=== PATIENT | female | born 1970 | race Caucasian/White ===

== ENCOUNTER 2025-02-21 10:47 | Observation (INO) | payer BC, OTHER, SELFPAY ==
[2025-02-21] VITALS (8 sets, daily range): BP systolic 120–138; BP diastolic 63–86; PULSE 67–89; RESP 15–16; TEMP 36.4–36.8; O2SAT 93–99; BMI 27.8
--- NOTE | ~2025-02-21 | XR_ITS ---
Portable chest x-ray Comparison: None Clinical History: Dizziness Findings: Lungs are clear, without focal consolidation or pleural effusion. Cardiomediastinal silho uette is unremarkable. Bones and soft tissues are unremarkable. Impression: Normal chest. Reviewed, dictated and finalized at location . Impression: Normal chest.
--- NOTE | ~2025-02-21 | MR_ITS ---
EXAMINATION: MR brain/brain stem wo/w con DATE: 02/22/2025 12:06 INDICATION: Facial droop and vertigo TECHNIQUE: Magnetic resonance imaging (MRI) of the brain and brainstem was performed without and with 20 mL Multihance intravenous contrast. Sequences included sagittal and axial T1-weighted SE, axial d iffusion-weighted FS SE, axial 3D SWAN, axial T2-weighted FLAIR, and axial T2-weighted FSE. Postcontr ast axial and coronal T1-weighted SE was obtained. Apparent diffusion coefficient (ADC) maps were cre ated. COMPARISON: None. FINDINGS: There are no areas of restricted diffusion to suggest acute infarction. Small old infarct at the righ t cerebellar hemisphere. No intracranial hemorrhage or abnormal intracranial mass lesion. There are s cattered areas of nonspecific increased T2-weighted signal intensity in the cerebral white matter, pr edominantly involving the deep and periventricular white matter. There are no intraparenchymal signal abnormalities seen on the other pulse sequences. The ventricles are symmetric and normal in size. Th ere are no abnormal extra-axial fluid collections. Flow voids are seen in the cerebral arteries on th e T2-weighted sequences consistent with their expected patency. Mild mucosal thickening the bilateral ethmoid sinuses. Visualized orbits and soft tissues are unremarkable. There are no areas of abnormal enhancement on the post contrast images. IMPRESSION: 1. Small old right cerebellar infarct. No acute intracranial process or abnormally enhancing brain le sions. 2. Mild scattered nonspecific white matter T2 hyperintensity which within normal limits for age and l ikely sequela of chronic small vessel ischemic disease. Reviewed, dictated and finalized at location A. IMPRESSION: 1. Small old right cerebellar infarct. No acute intracranial process or abnorma lly enhancing brain lesions. 2. Mild scattered nonspecific white matter T2 hyperintensity which within mary l limits for age and likely sequela of chronic small vessel ischemic disease.
--- NOTE | ~2025-02-21 | CT_ITS ---
CT ANGIOGRAM NECK AND HEAD History: Vertigo, left facial droop. Technique: Axial noncontrast imaging of the brain was performed. Serial spiral axial images through t he head and neck were then obtained during arterial phase IV injection of 100 cc of Omnipaque 350. 3- D postprocessing and MIP images were then reconstructed on the remote workstation. Dose reduction ra hnique was used on this scan by utilizing automated exposure control and iterative reconstruction ra hnique. The dose-length product (DLP) was 1661.34 mGy-cm. CTA neck findings: Bilateral vertebral arteries are patent. Bilateral common carotid, internal carot id, and external carotid arteries are patent. No stenosis or large vessel occlusion. No aneurysm seen . The proximal right internal carotid artery demonstrates 0% stenosis relative to the normal distal a rtery lumen diameter. The proximal left internal carotid artery demonstrates 0% stenosis relative to the normal distal artery lumen diameter. CTA head findings: Distal vertebral arteries, basilar artery, and posterior cerebral arteries are pat ent. Distal internal carotid arteries, middle cerebral arteries, and anterior cerebral arteries are p atent. No stenosis or large vessel occlusion seen. No aneurysm seen. Axial noncontrast imaging of the brain demonstrates no evidence for acute infarct, intracranial hemor rhage or mass lesion. No mass effect or midline shift. Norton-white differentiation intact. Ventricles and subarachnoid spaces are unremarkable. Paranasal sinuses and mastoid air cells are clear. Calvariu m intact. Impression: Unremarkable exam. Reviewed, dictated and finalized at [facility]. Impression: Unremarkable exam.
--- OUTSIDE RECORDS SUMMARY | 2025-02-21 10:50 | XMS_ITS | Data Portability ---
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 Lab lipid panel, serum 2023 [facility]24 [facility], [address] [place] [address], [address], [place], [address], 08:31:30 CMP, serum or plasma 2023 024 [facility], [address] [place] [address], [address], [place], [address], 08:31:32 CBC w/ auto diff 2023 024 [facility], [address] [place] [address], [address], [place], [address], 08:31:34 unlisted lab - T4, free 2023 024 [facility], [address], [address], [place], [address], 08:31:31 T3, free, serum or plasma 2023 [facility], [address], [address], [place], [address], 08:31:34 TSH, ultra-sensi tive, serum 2023 [facility], [address], [address], [place], [address], 08:31:33 Referral None recorded. Procedures None recorded. Surgeries None recorded. Imaging None recorded. Medication Orders fluoxetine 20 mg capsule [address] [address] [facility], [address] [place] [address], [address], 17:05:32 Patient TargetsNo targets recorded. Patient InstructionsNo instructions recorded. Reason for Referral None Reported. Results Created Date Observation Date Name Description Value Unit Range Abnormal Flag Note LastModifiedBy Organization Detail LastModifiedTime 05/20/2005/21/2024 LIPID PANEL cholesterol, total 137 mg/dL 100-19 9 Not Available [facility] ([facility]) [address] [place], [address], 05/21/2024 08:31:30 05/20/2005/21/2024 LIPID PANEL triglyceride s 119 mg/dL 0-149 Not Available [facility] ([facility]) [address] [place], [address], 05/21/2024 08:31:30 05/20/20 24 05/21/2024 LIPID PANEL HDL cholesterol 64 mg/dL >39 Not Available [facility] ([facility]) [address] [place], [address], 05/21/2024 08:31:30 05/20/20 24 05/21/2024 LIPID PANEL VLDL cholesterol marissa 21 mg/dL 5-40 Not Available [facility] ([facility]) [address] [facility], [place], [address], 05/21/2024 08:31:30 05/20/20 24 05/21/2024 LIPID PANEL LDL chol calc ([facility]) 52 mg/dL 0-99 Not Available [facility] ([facility]) [address] [facility] [place], [address], 05/21/2024 08:31:30 05/20/20 24 05/21/2024 T4, FREE T4,free([facility] ct) 1.11 NG/dL 0.82-1 .77 Not Available [facility] ([facility]) [address] [place], [address], 05/21/2024 08:31:31 05/20/20 24 05/21/2024 COMP. METAB OLIC PANEL (14) glucose 102 mg/dL 70-99 above high normal Not Available [facility] ([facility]) [address] [facility] [place], [address], 05/21/2024 08:31:32 05/20/20 24 05/21/2024 COMP. METAB OLIC PANEL (14) BUN 18 mg/dL 6-24 Not Available [facility] ([facility]) [address] [place], [address], 05/21/2024 08:31:32 05/20/20 24 05/21/2024 COMP. METAB OLIC PANEL (14) creatinine 0.89 mg/dL 0.57-1 .00 Not Available [facility] ([facility]) [address] [facility] [place], [address], 05/21/2024 08:31:32 05/20/20 24 05/21/2024 COMP. METAB OLIC PANEL (14) eGFR 76 mL/mi n/1.7 3 >59 Not Available [facility] ([facility]) [address] [facility], [place], [address], 05/21/2024 08:31:32 05/20/20 24 05/21/2024 COMP. METAB OLIC PANEL (14) BUN/creatini ne ratio 20 9-23 Not Available [facility] ([facility]) [address] [facility], [place], [address], 05/21/2024 08:31:32 05/20/20 24 05/21/2024 COMP. METAB OLIC PANEL (14) sodium 142 mmol/ L 134-14 4 Not Available [facility] ([facility]) [address] [facility], [place], [address], 05/21/2024 08:31:32 05/20/20 24 05/21/2024 COMP. METAB OLIC PANEL (14) potassium 4.5 mmol/ L 3.5-5. 2 Not Available [facility] ([facility]) [address] [facility], [place], [address], 05/21/2024 08:31:32 05/20/20 24 05/21/2024 COMP. METAB OLIC PANEL (14) chloride 105 mmol/ L 96-106 Not Available [facility] ([facility]) [address] [facility], [place], [address], 05/21/2024 08:31:32 05/20/20 24 05/21/2024 COMP. METAB OLIC PANEL (14) carbon dioxide, total 25 mmol/ L 20-29 Not Available [facility] ([facility]) [address] [place], [address], 05/21/2024 08:31:32 05/20/20 24 05/21/2024 COMP. METAB OLIC PANEL (14) calcium 9.4 mg/dL 8.7-10 .2 Not Available [facility] ([facility]) [address] [facility] [place], [address], 05/21/2024 08:31:32 05/20/20 24 05/21/2024 COMP. METAB OLIC PANEL (14) protein, total 6.9 g/dL 6.0-8. 5 Not Available [facility] ([facility]) [address] [place], [address], 05/21/2024 08:31:32 05/20/20 24 05/21/2024 COMP. METAB OLIC PANEL (14) albumin 4.3 g/dL 3.8-4. 9 Not Available [facility] ([facility]) [address] [place], [address], 05/21/2024 08:31:32 05/20/20 24 05/21/2024 COMP. METAB OLIC PANEL (14) globulin, total 2.6 g/dL 1.5-4. 5 Not Available [facility] ([facility]) [address] [place], [address], 05/21/2024 08:31:32 05/20/20 24 05/21/2024 COMP. METAB OLIC PANEL (14) bilirubin, total 0.7 mg/dL 0.0-1. 2 Not Available [facility] ([facility]) [address] [facility] [place], [address], 05/21/2024 08:31:32 05/20/20 24 05/21/2024 COMP. METAB OLIC PANEL (14) alkaline phosphatase 69 IU/L 44-121 Not Available [facility] ([facility]) [address] [facility] [place], [address], 05/21/2024 08:31:32 05/20/20 24 05/21/2024 COMP. METAB OLIC PANEL (14) AST (SGOT) 18 IU/L 0-40 Not Available [facility] ([facility]) [address] [facility] [place], [address], 05/21/2024 08:31:32 05/20/20 24 05/21/2024 COMP. METAB OLIC PANEL (14) ALT (SGPT) 16 IU/L 0-32 Not Available [facility] ([facility]) [address] [facility], [place], [address], 05/21/2024 08:31:32 05/20/20 24 05/21/2024 TSH TSH 1.120 uIU/m L 0.450- 4.500 Not Available [facility] ([facility]) [address] [facility], [place], [address], 05/21/2024 08:31:33 05/20/20 24 05/21/2024 CBC WITH DIFFE RENTI AL/PL ATELE T WBC 6.3 x10e3 /uL 3.4-10 .8 Not Available [facility] ([facility]) [address] [facility], [place], [address], 05/21/2024 08:31:33 05/20/20 24 05/21/2024 CBC WITH DIFFE RENTI AL/PL ATELE T RBC 4.47 x10e6 /uL 3.77-5 .28 Not Available [facility] ([facility]) [address] [facility], [place], [address], 05/21/2024 08:31:33 05/20/20 24 05/21/2024 CBC WITH DIFFE RENTI AL/PL ATELE T hemoglobin 14.3 g/dL 11.1-1 5.9 Not Available [facility] ([facility]) [address] [place], [address], 05/21/2024 08:31:33 05/20/20 24 05/21/2024 CBC WITH DIFFE RENTI AL/PL ATELE T hematocrit 42.7 % 34.0-4 6.6 Not Available [facility] ([facility]) [address] [place], [address], 05/21/2024 08:31:33 05/20/20 24 05/21/2024 CBC WITH DIFFE RENTI AL/PL ATELE T MCV 96 fL 79-97 Not Available [facility] ([facility]) [address] [facility], [place], [address], 05/21/2024 08:31:33 05/20/20 24 05/21/2024 CBC WITH DIFFE RENTI AL/PL ATELE T MCH 32.0 pg 26.6-3 3.0 Not Available [facility] ([facility]) [address] [facility], [place], [address], 05/21/2024 08:31:33 05/20/20 24 05/21/2024 CBC WITH DIFFE RENTI AL/PL ATELE T MCHC 33.5 g/dL 31.5-3 5.7 Not Available [facility] ([facility]) [address] [facility], [place], [address], 05/21/2024 08:31:33 05/20/20 24 05/21/2024 CBC WITH DIFFE RENTI AL/PL ATELE T RDW 12.5 % 11.7-1 5.4 Not Available [facility] ([facility]) [address] [facility], [place], [address], 05/21/2024 08:31:33 05/20/20 24 05/21/2024 CBC WITH DIFFE RENTI AL/PL ATELE T platelets 235 x10e3 /uL 150-45 0 Not Available [facility] ([facility]) [address] [facility], [place], [address], 05/21/2024 08:31:33 05/20/20 24 05/21/2024 CBC WITH DIFFE RENTI AL/PL ATELE T neutrophils 63 % notest ab. Not Available [facility] ([facility]) [address] [facility], [place], [address], 05/21/2024 08:31:33 05/20/20 24 05/21/2024 CBC WITH DIFFE RENTI AL/PL ATELE T lymphs 28 % notest ab. Not Available [facility] ([facility]) [address] [facility], [place], [address], 05/21/2024 08:31:33 05/20/20 24 05/21/2024 CBC WITH DIFFE RENTI AL/PL ATELE T monocytes 7 % notest ab. Not Available [facility] ([facility]) [address] [facility], [place], [address], 05/21/2024 08:31:33 05/20/20 24 05/21/2024 CBC WITH DIFFE RENTI AL/PL ATELE T eos 1 % notest ab. Not Available [facility] ([facility]) [address] [facility], [place], [address], 05/21/2024 08:31:33 05/20/20 24 05/21/2024 CBC WITH DIFFE RENTI AL/PL ATELE T basos 1 % notest ab. Not Available [facility] ([facility]) [address] [facility], [place], [address], 05/21/2024 08:31:33 05/20/20 24 05/21/2024 CBC WITH DIFFE RENTI AL/PL ATELE T neutrophils (absolute) 4.0 x10e3 /uL 1.4-7. 0 Not Available [facility] ([facility]) [address] [facility], [place], [address], 05/21/2024 08:31:33 05/20/20 24 05/21/2024 CBC WITH DIFFE RENTI AL/PL ATELE T lymphs (absolute) 1.8 x10e3 /uL 0.7-3. 1 Not Available [facility] ([facility]) [address] [facility], [place], [address], 05/21/2024 08:31:33 05/20/20 24 05/21/2024 CBC WITH DIFFE RENTI AL/PL ATELE T monocytes(ab solute) 0.5 x10e3 /uL 0.1-0. 9 Not Available [facility] ([facility]) [address] [place], [address], 05/21/2024 08:31:33 05/20/20 24 05/21/2024 CBC WITH DIFFE RENTI AL/PL ATELE T eos (absolute) 0.0 x10e3 /uL 0.0-0. 4 Not Available [facility] ([facility]) [address] [facility], [place], [address], 05/21/2024 08:31:33 05/20/20 24 05/21/2024 CBC WITH DIFFE RENTI AL/PL ATELE T baso (absolute) 0.0 x10e3 /uL 0.0-0. 2 Not Available [facility] ([facility]) [address] [place], [address], 05/21/2024 08:31:33 05/20/20 24 05/21/2024 CBC WITH DIFFE RENTI AL/PL ATELE T immature granulocytes 0 % notest ab. Not Available [facility] ([facility]) [address] [place], [address], 05/21/2024 08:31:33 05/20/20 24 05/21/2024 CBC WITH DIFFE RENTI AL/PL ATELE T immature grans (abs) 0.0 x10e3 /uL 0.0-0. 1 Not Available [facility] ([facility]) [address] [place], [address], 05/21/2024 08:31:33 05/20/20 24 05/21/2024 TRIIO DOTHY MEIR E (T3), FREE triiodothyro nine (T3), free 3.0 pg/mL 2.0-4. 4 Not Available [facility] ([facility]) [address] [place], [address], 05/21/2024 08:31:34 05/20/20 24 05/21/2024 FSH AND LH LH 25.8 mIU/m L Adult Femal e Range Folli cular phase 2.4 - 12.6 Ovula tion phase 14.0 - 95.6 Lutea l phase 1.0 - 11.4 Postm enopa usal 7.7 - 58.5 Not Available [facility] ([facility]) [address] [place], [address], 05/21/2024 12:36:58 05/20/20 24 05/21/2024 FSH AND LH FSH 51.5 mIU/m L Adult Femal e Range Folli cular phase 3.5 - 12.5 Ovula tion phase 4.7 - 21.5 Lutea l phase 1.7 - 7.7 Postm enopa usal 25.8 - 134.8 Not Available [facility] ([facility]) [address] [facility], [place], [address], 05/21/2024 12:36:58 11/20/19 25 11/19/2024 MAMMO , scree oniel, digit al, bilat eral No observ ation record ed. [facility] [address] [place], [address], 11/20/2024 15:58:35 Result Notes None recorded. Problems Name Problem SNOMED Code Status Onset Date Resolution Date Notes Provider Name and Address Organization Details Recorded Time Anxiety 55621003 Active 024 Adilene Lopez [place] null, [place] - [facility] 04/08/2024 15:57:59 Fatigue 86043251 Active 024 Adilene Lopez [place] null, [place] - [facility] 04/08/2024 15:58:14 Problem Notes None recorded. Procedures Surgical History Date Name Laterality Status Provider Name and Address Organization Details Recorded Time delivery completed Frederic Vela MA [facility] 04/08/2024 15:28:54 delivery completed Frederic Vela MA [facility] 04/08/2024 15:28:55 Imaging Results None recorded. Procedure Notes None recorded. Medical Equipment None Reported. Allergies No known drug allergies Medications Name Sig Start Date Stop Date Status Note LastModified by Organization Details LastModified Time meloxicam 15 mg tablet TAKE 1 TABLET BY MOUTH ONCE DAILY active Not Available Not Available No t Available alprazolam 0.5 mg tablet TAKE 1 TABLET BY MOUTH ONCE DAILY NEEDED active Not Available Not Available No t Available fluoxetine 20 mg capsule Take 1 capsule every day by oral route. 024 active Not Available Not Available Not Avai lable Vitals Date Recorded Body weight Body mass index (BMI) Body height Oxygen saturation Oxygen saturation in Arterial blood by Pulse oximetry Heart rate Systolic blood pressure Diastolic blood pressure Provider Name and Address Organization Details Last Updated DateTime 23366.6 7 g 29.5 kg/m2 177.8 cm 95 % 95 % 75 /min 118 mm[Hg] 74 mm[Hg] Frederic Vela MA [facility] 15:34:30 Social History Question Answer Notes LastModified by Organizat ion Details LastModified Time Tobacco Smoking Status Never Smoker Fredeirc Vela [place] null, [place] - [facility] 04/08/2024 15:27:58 Do You Have An Advance Directive? No Information not available 04/08/2024 Are You Blind Or Do You Have Difficulty Seeing? No Information not available 04/08/2024 What Is Your Level Of Caffeine Consumption? Occasional Information not available 04/08/2024 Are You Deaf Or Do You Have Serious Difficulty Hearing? No Information not available 04/08/2024 What Type Of Diet Are You Following? REGULAR Information not available 04/08/2024 What Was The Date Of Your Most Recent Tobacco Screening? 04/08/2024 Information not available 04/08/2024 What Is Your Relationship Status? Information not available 04/08/2024 Do You Use Your Seat Belt Or Car Seat Routinely? Yes Information not available 04/08/2024 Do You Have Smoke And Carbon Monoxide Detectors In Your Home? Yes Information not available 04/08/2024 Has Tobacco Cessation Counseling Been Provided? No Information not available 04/08/2024 Sex: Female Functional Status Question Answer Note LastModified by Organizat ion Details LastModified Time Do you use any illicit or recreational drugs? No Information not available 04/08/2024 Do you or have you ever used any other forms of tobacco or nicotine? No Information not available 04/08/2024 What is your level of alcohol consumption? Occasional Information not available 04/08/2024 Are you able to care for yourself? Yes Information n ot available 04/08/2024 What is your exercise level? Occasional Information not available 04/08/2024 Mental Status Question Answer Note LastModified by Organization D etails LastModified Time Do you feel stressed (tense, restless, nervous, or anxious, or unable to sleep at night)? [id number] Information not available 04/08/2024 Family History Nothing Reported. Medical History Condition Response Coronary Artery Disease N Other N High Blood Pressure N Atrial Fibrillation N Kidney or Bladder Problems N Thyroid Problems N GI Problems N Depression Y COPD N Blood Clots N Have you had a mammogram in the last yea r? N Skin Problems N Anemia N Heart Attack ([place]) N Anxiety Disorder Y Diabetes N Muscle, Joint, or Bone Problems N Seizures/Epilepsy N Have you had a colonoscopy in the last 1 0 years? N Acid Reflux (GERD) N Cancer N Stroke N Asthma N Allergies N Have you had a PSA blood test in the las t year? N High Cholesterol N Hepatitis N Liver Disease N Headaches N Heart Failure N Osteoporosis N Gynecological HistoryNo gynecological history recorded. Obstetrics History GPAL:G 0 P 0 0 0 0 Past Encounters Encounter ID Performer Location Encounter Start Date Encounter Closed Date Diagnosis/Indication Diagnosis SNOMED-CT Code Diagnosis ICD10 Code Diagnosis Note [id number] Joshua Perrin MD [facility] (Adult Med) [address] [place] [phone] 04/08/2024 15:10:09 04/08/2024 16:08:46 Fatigue 26920355 R53.83 Anxiety 18131555 F41.9 Screening for cardiovascular system disease 815925797 Z13.6 Perimenopausal state 022 8932237 26155 Z78.0 Health Concerns Section Related Observation LastModified by Organization Detai ls LastModified Time None Recorded Concern Status LastModified by Organization Details LastModified Time None Recorded Advance Directives Directive N: Payers Encounter Date Sequence Insurance Name Policy Number Policy Gtz Covered Member ID Gtz Member ID Guarantor Name 04/08/2024 2 [employer] [id number] Samy Sarmiento Rossana [id number] Yahaira Tracy 04/08/2024 3 [employer] LIFE () Samy Tracy [id number] Yahaira Tracy Notes Date Note Type Note Provider Name and Address Organization Details Recorded Time 04/08/2024 text/html some fatigue and perimenopausal symptoms. Also some anxiety no SI or HI Joshua Perrin MD Attn: [address]ing[address] [place], [address], [facility] 05/02/2024 13:51:14 OBGyn Episode No OBEpisode recorded.
--- OUTSIDE RECORDS SUMMARY | 2025-02-21 10:50 | XMS_ITS | Data Portability ---
Author Organization [place] [facility], Main Office Address [address] [place] [address] Care Team Providers Care Disaster Director Name Role Phone FARA PERRIN Primary Care Provider [phone] FARA PERRIN Referring Provider Assessment Encounter Date Assessment Date Assessment LastModified by Organization Details LastModified Time 03/14/2023 03/14/2023 Patient returns after MRI scan of her right knee. I have reviewed the images. 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 There is degenerative signal within the medial meniscus as well as anterior horn of lateral meniscus without evidence of tear. She does have edema in the tip of the infrapatellar fat pad might be contributing to her inability to fully extend her knee and there is a little bit of swelling of the insertion of the ACL anteriorly seen well on the sagittal images but not seen well on the coronal images which might impede Extension. Moderate effusion noted. The most significant finding was full-thickness cartilage loss in the center of the patella with subchondral bone edema centrally proximally indicating she has early patellofemoral arthritis. She ran out of her meloxicam at last visit 2 weeks ago and her knee has been hurting more in her left knee has been hurting also. She is using a cane in the right hand because of her abductor weakness left hip which is believed to be due to degenerative tearing of the abductor musculature there. I have discussed options with her. I recommended trying a cortisone injection into the right knee. She has had physical therapy and took meloxicam for 2 months and her symptoms have persisted. Hopefully the cortisone shot will cause some shrinkage and D sensitization of the infrapatellar fat pad lessening impingement and allowing her to extend the knee better. On exam today she had a moderate effusion left knee and about a 15 degree flexion contracture which I could passively push down to about 10 and she guards. After ChloraPrep prep, 20 mg of Kenalog and 4 cc of 0.5% ropivacaine were injected into the right knee without difficulty and she tolerated this very well. After the cortisone shot as a beneficial effect she will work on trying to achieve full extension again with gentle stretching every day. I refilled her meloxicam 15 mg daily. She will continue use the cane in the right hand I will see her back in 6 weeks assess her progress. I did discuss with her risks of cortisone shot including risk of infection. I also discussed with her the importance of her focusing hard on losing weight. Weight loss will be the most important thing she can do to help with her abductor weakness and trochanteric pain syndrome as well as patellofemoral arthritis and this was thoroughly explained. 20 minutes were spent total care this patient more than half the time spent in [id number] care. [email or web address] Not available 03/14/2023 09:28:39 04/25/2023 04/25/2023 HPI patient returns. She had a cortisone injection in the right knee 6 weeks ago. Shot worked great, at this point she feels that the effects of the shot her wearing off. She has been very active because her knee was feeling so good. She has been doing a lot of stool squatting and kneeling around the house. She has not been taking the meloxicam regularly. She forgets it at times and is not sure how often she actually is taking it. Pain in the knee is mild at this point it is much better than what was previously. Physical exam: 53-year-old female she is walking with a cane today. She has a minimal limp. No effusion the right knee. Range motion is from 5-135 degrees. She has pain trying to extend the knee fully still. There is no medial or lateral joint line tenderness. Mild patellofemoral grind. Impression: 53-year-old female who has patellofemoral osteoarthritis seen on MRI scan. She has no meniscal pathology on the MRI scan. She asked about another injection and advised her knees be a minimum of 3 months. I have also recommended that she start taking the meloxicam on a daily basis rather than missing doses as this can help with her symptoms as well. We talked about weight loss again as this will also help with her symptoms as well. Overall her symptoms at this point are very tolerable. She would like to come back in 6 weeks for possible injection again and we will set this up for her. If she continues taking meloxicam regularly and has significant improvement of her symptoms with this as well as modifying activities she can certainly call and cancel rather than get the shot if she does not feel she needs it. 20 minutes was spent in treatment patient more half of this in [id number] conversation Not available 04/25/2023 11:55:43 06/06/2023 06/06/2023 HPI: Patient returns. She is here wanting a cortisone injection in her right knee again. Last shot was 3 months ago. She has had an MRI scan which shows that she has predominantly patellofemoral osteoarthritis and no meniscal pathology. She has been taking the meloxicam daily and this has helped with her symptoms. However several days ago she was helping her daughter who is ready to have her 1st baby. She was doing a lot of extra cleaning and help around her daughter's house and was on her feet extended period of time for couple days in a row and now the knee is bothering her again. She is getting ready to go on a trip to [place] and wished to have another injection today. Physical exam: 53-year-old female alert pleasant. She walks without limp. Has a minimal effusion right knee. Moderate patellofemoral grind. Range motion is from 3 to 135 . No medial or lateral joint line tenderness. ChloraPrep was used on skin 20 mg Kenalog and 3 cc of 0.5% ropivacaine was injected right knee. Risk infection discussed. Impression: A 53-year-old female who has patellofemoral osteoarthritis best seen on the MRI scan in the right knee. I recommended that she continue with her meloxicam daily. Shots could be repeated as often as every 3 months and she will keep that in mind. At this point see her back as needed. Not available 06/06/2023 12:15:48 09/05/2023 09/05/2023 HPI: Patient returns. She is here for cortisone injection right knee. She has patellofemoral osteoarthritis in the knee best seen on the MRI scan. Shot 3 months ago did help quite a bit. She remains on meloxicam 15 mg daily. Physical exam: 53-year-old female she is 5 ft 9 and 228 lb BMI is 33.7. She has a minimal effusion in the right knee. Moderate pain with patellofemoral grind. No medial lateral joint line tenderness. Range of motion is from 5-135 degrees. After ChloraPrep was used on skin 20 mg Kenalog and 3 cc of 0.5% ropivacaine was injected into the right knee. Risk of infection discussed. Impression: 53-year-old female who has patellofemoral osteoarthritis the right knee. We talked about weight loss. I think with getting her weight down can make a big difference on overall pain level in the knee. She states that she is going to start working on this as of the of the year as her goal. She will remain on meloxicam at this point. We will see her in 3 months. Not available 09/05/2023 16:38:02 12/05/2023 12/05/2023 HPI: Patient returns. She is here for cortisone injection in the right knee. Last shot was 3 months ago. She gets good relief from the injections. She has moderate patellofemoral osteoarthritis in the knee. 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 She has been going up and down stairs lot more than normal. Her knee is bothering her quite a bit. She is on meloxicam and this is helping with her pain. She would like to have another injection today. Physical exam: 53-year-old female he walks without a limp. Mild effusion right knee. Moderate pain with patellofemoral grind. Range motion is from 10 to 135 . No edema in lower extremities. After alcohol prep 20 mg Kenalog and 3 cc of 0.5% ropivacaine was injected into the right knee. Impression: 53-year-old female who has patellofemoral osteoarthritis the right knee. Shots continue new to give her good benefit. We will see her in 3 months. Not available 12/05/2023 09:14:15 Plan of Treatment Reminders Order Date Submit Date Provider Last Modified By Organization Details Last Modified Time Details Appointments None recorded. Lab None recorded. Referral None recorded. Procedures injection/a spiration joint/bursa (PROC) 2023 024 [email or web address] In-Office Order, Internal Use Only DO Not Attach Compendium DO Not Attach Compendium, Do Not Delete/merge, [id number] 13:34:01 injection/a spiration joint/bursa (PROC) - in office procedure, administere d by provider 2022 023 [email or web address] In-Office Order, Internal Use Only DO Not Attach Compendium DO Not Attach Compendium, Do Not Delete/merge, [id number] 16:11:22 injection/a spiration joint/bursa (PROC) - in office procedure, administere d by provider 2022 023 In-Office Order, Internal Use Only DO Not Attach Compendium DO Not Attach Compendium, Do Not Delete/merge, [id number] 3 12:00:43 injection/a spiration joint/bursa (PROC) - in office procedure, administere d by provider 2022 023 [email or web address] In-Office Order, Internal Use Only DO Not Attach Compendium DO Not Attach Compendium, Do Not Delete/merge, [id number] 3 09:22:49 Surgeries None recorded. Imaging None recorded. Medication Orders bupivacaine HCl 0.5 % (5 mg/mL) injection solution [address] [facility], [address] [place] [address], [id number], 4 09:15:04 Kenalog 10 mg/mL suspension for injection [address] [facility], [address] [place] [address], [id number], 4 09:15:04 Mobic 15 mg tablet 2023 024 [facility], [address] [place] [address], [id number], 4 09:15:00 Kenalog 10 mg/mL suspension for injection [address] [facility], [address] [place] [address], [id number], 3 13:06:37 ropivacaine (PF) 5 mg/mL (0.5 %) injection solution [address] [facility], [address] [place] [address], [address], 3 13:06:37 Kenalog 10 mg/mL suspension for injection [address] [facility], [address] [place] [address], [address], 3 12:59:04 ropivacaine (PF) 5 mg/mL (0.5 %) injection solution [address] [facility], [address] [place] [address], [address], 3 12:59:04 Kenalog 10 mg/mL suspension for injection 2022 023 [facility] [place] [address] [facility], [address] [place] [address], [address], 3 06:27:28 ropivacaine (PF) 5 mg/mL (0.5 %) injection solution 2022 023 [facility] [place] [address] Pharmacy [address], [address] [place] [address], [address], 3 06:27:28 meloxicam 15 mg tablet [address] [facility], [address] [place] [address], [id number], 3 12:20:02 Patient TargetsNo targets recorded. Patient InstructionsNo instructions recorded. Reason for Referral None Reported. Results Created Date Observation Date Name Description Value Unit Range Abnormal Flag Note LastModifiedBy Organization Detail LastModifiedTime 02/29/20 23 XR, hip + pelvi s, unila teral No observ ation record ed. [email or web address] [facility] [place] [id number] [facility], [place], [address], 03/06/2023 21:12:11 03/12/20 23 03/12/2023 MRI, knee, w/o contr ast [facility] [address], [place] [address] [phone] Patien t Name: ROBERT HERNANDEZ Access ion #: [id number] Sex: F : 1969 0 Locati on: RAD Attend ing Physic amadou: FREDDY JACOB Orderi ng Physic amadou: FREDDY JACOB Exam Date: 023 10:39 AM Exam Name: MRI KNEE RT WO Admitt ing Diagno sis(es ): RADIOL OGY REPORT - FINAL EXAM: MRI KNEE RT WO HISTOR Y: right knee pain COMPAR JOI: Chroni c TECHNI QUE: Multip lanar multis equenc e noncon trast MR images of the right knee were perfor med. FINDIN GS: Osseou s: No. Mild focus of subcho ndral edema, superi or apical region of the patell a measur ing 1 cm. No defini te fractu re. Joint space: There is a small joint effusi on. No poplit eal fossa cyst. Gabriella meza g Page 1 of 2 [facility] Patien t Name: ROBERT HERNANDEZ Access ion #: [id number] Sex: F : 1969 0 Exam Date: 023 10:39 AM Exam Name: MRI KNEE RT WO Admitt ing Diagno sis(es ): Ligame nts: The ACL, PCL, MCL, LCL, akhil ceps tendon , and the retina cular tissue s are intact . Tendon s:Inta ct Cartil age:Mo derate thinni ng, all 3 compar tments . Tablet Coater olater al corner :Unrem arkabl e Medial menisc us: The medial menisc us demons trates degene rative noncom munica ting hyperi ntense signal . Latera l menisc us: The latera l menisc us is intact demons tratin g intras ubstan ce hyperi ntense signal . IMPRES PADMINI: See above. Create d and electr onical ly signed by: Virgil moore MD Signed Date: 4:53 PM (CT) Dictat ed by: Virgil moore MD DD: 4:53 PM (CT) DT: 4:53 PM (CT) Page 2 of [id number] [place] [address] (Imaging) [address] [place] [address], [address], 03/13/2023 16:43:10 Result Notes None recorded. Problems Name Problem SNOMED Code Status Onset Date Resolution Date Notes Provider Name and Address Organization Details Recorded Time Bilateral elbow joint pain 98494708251 940548 Active 2021 Not Available [facility] 3 06:27:29 Pain of left elbow joint 93481376515 092948 Active 2021 Not Available [facility] 3 06:27:29 Pain of right elbow joint 69292048046 637672 Active 2021 Not Available [facility] 3 06:27:29 Neuralgia 85895672 Active 2018 Not Available [facility] 3 06:27:29 Cat scratch Completed Not Available [facility] 3 06:15:15 Wears glasses 891912831 Active 2018 Not Available [facility] 3 06:27:29 Ankle pain 188299097 Active 2018 Not Available [facility] 3 06:27:29 Pain in thoracic spine 481431402 Completed Not Available [facility] 3 06:15:15 Thoracic back pain 548754640 Active Not Available [facility] 3 06:27:29 Low back pain 733819325 Active 2021 Not Available [facility] 3 06:27:29 Medial epicondyl itis of left elbow joint 06929562011 9107 Active 2021 Not Available [facility] 3 06:27:29 Depressiv e disorder 70697399 Active 2018 Not Available [facility] 3 06:27:29 Sinusitis 99128546 Completed Not Available [facility] 3 06:15:16 Foot pain 82365876 Active 2018 Not Available [facility] 3 06:27:29 Pain of elbow region 88948457 Active 2021 Not Available [facility] 3 06:27:29 Neck pain 06693595 Active Not Available [facility] 3 06:27:29 Pain of bilateral knee joints 61973838833 4104 Active 2022 Not Available [facility] 3 06:27:29 Bilateral osteoarth ritis of knees 32106711809 9107 Active 2022 Not Available [facility] 3 06:27:29 Pain of right knee joint 35563872415 4100 Active 2022 Not Available [facility] 3 06:27:29 Pain of right hip joint 00088051961 9102 Active 2022 Not Available [facility] 3 06:27:29 Degenerat alen disorder of cartilage 059867832 Active 2022 NGOZI Garcia, [facility] [employer] [facility] 3 10:57:32 Osteoarth ritis of left knee joint 50336304253 9109 Active 2022 Vanessa Jameson CMA null, [employer] [facility] [employer] [facility] 3 14:30:51 Osteoarth ritis of right knee joint 60396166771 9100 Active 2022 NGOZI Garcia null, [place] [facility] 16:10:02 Notes:numbness or tingling, back/neck pain Problem Notes None recorded. Procedures Surgical History Date Name Laterality Status Provider Name and Address Organization Details Recorded Time plantar fasciectomy completed Not Available [facility] 11/14/2022 06:12:03 completed Not Available [facility] 0 11/14/2022 06:12:03 completed Not Available [facility] 0 11/14/2022 06:12:03 Imaging Results None recorded. Procedure Notes None recorded. Medical Equipment None Reported. Allergies No known drug allergies Medications Name Sig Start Date Stop Date Status Note LastModified by Organization Details LastModified Time cyclobenzap rine 10 mg tablet Take 1 tablet every day by oral route at bedtime. active Not Available Not Available No t Available amoxicillin 500 mg capsule TAKE 1 CAPSULE BY MOUTH THREE TIMES DAILY FOR 7 DAYS active Not Available Not Available No t Available buspirone 5 mg tablet Take 1 tablet twice a day by oral route. active Not Available Not Available No t Available ibuprofen 800 mg tablet Take 1 tablet 3 times a day by oral route. 12/20 completed Not Available Not Available Not Available tizanidine 4 mg tablet Take 1 tablet every day by oral route at bedtime. active Not Available Not Available No t Available valacyclovi r 1 gram tablet Take 1 tablet twice a day by oral route for 7 days. 12/03 completed Not Available Not Available Not Available meloxicam 15 mg tablet Take 1 tablet by mouth once daily active Not Available Not Available No t Available Medrol ([place]) 4 mg tablets in a dose pack Take 1 dose pk by oral route as directed. active Not Available Not Available No t Available bupivacaine HCl 0.5 % (5 mg/mL) injection solution in office 2023 active Not Available Not Available Not Avai lable prednisone 20 mg tablet 3tabs x 3 days, 2tabs x 3days, 1 tab x 3 days active Not Available Not Available No t Available sertraline 100 mg tablet TAKE 1 TABLET BY MOUTH ONCE DAILY 12/20 completed Not Available Not Available Not Available phentermine 15 mg capsule active Not Available Not Available Not Available Diflucan 150 mg tablet Take 1 tablet every day by oral route. active Not Available Not Available No t Available amoxicillin 500 mg tablet Take 1 tablet 3 times a day by oral route for 7 days. 09/26 completed Not Available Not Available Not Available terbinafine HCl 250 mg tablet Take 1 tablet every day by oral route. 09/18 completed Not Available Not Available Not Available alprazolam 0.5 mg tablet TAKE 1 TABLET BY MOUTH ONCE DAILY NEEDED active Not Available Not Available No t Available citalopram 20 mg tablet TAKE 1 TABLET BY MOUTH ONCE DAILY 04/25 completed Not Available Not Available Not Available lorazepam 0.5 mg tablet TAKE ONE TABLET BY MOUTH AT BEDTIME NEEDED active Not Available Not Available No t Available Kenalog 10 mg/mL suspension for injection in office 2023 active [facility]: 0003- 0494- 20 Not Available Not Available Not Available etodolac 400 mg tablet Take 1 tablet twice a day by oral route. active Not Available Not Available No t Available sertraline 50 mg tablet TAKE 1 TABLET BY MOUTH ONCE DAILY 12/20 completed Not Available Not Available Not Available amoxicillin 875 mg-potassiu m clavulanate 125 mg tablet Take 1 tablet twice a day by oral route for 10 days. 12/03 completed Not Available Not Available Not Available Sprintec (28) 0.25 mg-0.035 mg tablet TAKE 1 TABLET BY MOUTH ONCE DAILY IN A CONTINUOU S FASHION 09/18 completed Not Available Not Available Not Available Tri-Sprinte c (28) 0.18 mg(7)/0.215 mg(7)/0.25 mg(7)-0.035 mg tablet 11/28 completed Not Available Not Available Not Available Zanaflex 4 mg capsule Take 1 capsule every day by oral route at bedtime. 12/01 completed Not Available Not Available Not Available Sprintec (28) 11/25 completed Not Available Not Available Not Available ropivacaine (PF) 5 mg/mL (0.5 %) injection solution in office 2022 active Not Available Not Available Not Avai lable Vitals Date Recorded Body height Provider Name an d Address Organization Details Last Updated DateTime 12/05/2023 175.26 cm NGOZI Garcia [place] [facility] [employer] [facility] 12/05/2023 09:01:19 Date Recorded Body height Provider Name an d Address Organization Details Last Updated DateTime 03/14/2023 175.26 cm Dsaha Frank [facility] 03/14/2023 09:02:57 Date Recorded Body height Provider Name an d Address Organization Details Last Updated DateTime 04/25/2023 175.26 cm Dasha Frank [facility] 04/25/2023 10:56:32 Date Recorded Body height Provider Name an d Address Organization Details Last Updated DateTime 06/06/2023 175.26 cm Dasha Frank [facility] 06/06/2023 10:59:23 Date Recorded Body height Provider Name an d Address Organization Details Last Updated DateTime 09/05/2023 175.26 cm Dasha Frank [facility] 09/05/2023 16:09:29 Social History Question Answer Notes LastModified by Organizat ion Details LastModified Time Tobacco Smoking Status Never Smoker Not Available [facility] 11/14/2022 06:11:44 Do You Have An Advance Directive? No [id number] Information not available 11/14/2022 Do You Wear A Helmet When Biking? No [id number].15760 [id number] Information not available 11/14/2022 What Is Your Level Of Caffeine Consumption? Occasional [id number].67533 [id number] Information not available 11/14/2022 How Much Tobacco Do You Chew? None MIGRATION.59301 [id number] Information not available 11/14/2022 In The 14 Days Before Symptom Onset, Have You Had Close Contact With A Laboratory-confi rmed COVID-19 While That Case Was Ill? No [id number] Information not available 11/14/2022 In The 14 Days Before Symptom Onset, Have You Had Close Contact With A Person Who Is Under Investigation For COVID-19 While That Person Was Ill? No [id number] [id number] Information not available 11/14/2022 What Type Of Diet Are You Following? REGULAR MIGRATION.56497 61707 Information not available 11/14/2022 Which Illicit Or Recreational Drugs Have You Used? None MIGRATION.19941 [id number] Information not available 11/14/2022 What Is The Highest Grade Or Level Of School You Have Completed Or The Highest Degree You Have Received? [id number] MIGRATION.69678 [id number] Information not available 11/14/2022 Have There Been Any Changes To Your Family Or Social Situation? No MIGRATION.47175 50423 Information not available 11/14/2022 What Is The Fluoride Status Of Your Home? Unknown MIGRATION.79155 95551 Information not available 11/14/2022 Are There Any Guns Present In Your Home? Yes [id number].13858 [id number] Information not available 11/14/2022 Do You Use Insect Repellent Routinely? No MIGRATION.70112 [id number] Information not available 11/14/2022 Where Do You Live? [facility] MIGRATION.62575 [id number] Information not available 11/14/2022 Do You Have A Medical Power Of Felling Machine Operator? No MIGRATION.88335 03710 Information not available 11/14/2022 What Was The Date Of Your Most Recent Tobacco Screening? 10/17/2021 MIGRATION.44148 33492 Information not available 11/14/2022 Have You Ever Been Counseled For Unhealthy Alcohol Use? No MIGRATION.19914 85053 Information not available 11/14/2022 Do You Have Any Pets? Yes MIGRATION.03007 82482 Information not available 11/14/2022 What Is Your Relationship Status? MIGRATION.91395 45954 Information not available 11/14/2022 Do You Use Your Seat Belt Or Car Seat Routinely? Yes MIGRATION.70028 88858 Information not available 11/14/2022 Do You Have Smoke And Carbon Monoxide Detectors In Your Home? Yes MIGRATION.15462 34385 Information not available 11/14/2022 Are You Passively Exposed To Smoke? No MIGRATION.57982 50670 Information not available 11/14/2022 Are There Any Smokers In Your House? No MIGRATION.18502 72120 Information not available 11/14/2022 How Much Tobacco Do You Smoke? No MIGRATION.18134 45040 Information not available 11/14/2022 What Types Of Sporting Activities Do You Participate In? None MIGRATION.74522 09334 Information not available 11/14/2022 Do You Use Sunscreen Routinely? Yes MIGRATION.64613 53464 Information not available 11/14/2022 Has Tobacco Cessation Counseling Been Provided? No Not Needed-ne graeme Smoked MIGRATION.14158 96452 Information not available 11/14/2022 How Many Years Have You Smoked Tobacco? 0 MIGRATION.66729 12015 Information not available 11/14/2022 Have You Recently Traveled Abroad? No MIGRATION.09717 28177 Information not available 11/14/2022 Do You Have Any Dietary Restrictions? No [id number] Information not available 11/14/2022 Sex: Female Functional Status Question Answer Note LastModified by Organizat ion Details LastModified Time Do you use any illicit or recreational drugs? No [id number] Information not available 11/14/2022 Do you or have you ever used any other forms of tobacco or nicotine? No [id number] Information not available 11/14/2022 What is your level of alcohol consumption? Occasional [id number] Information not available 11/14/2022 Do you or have you ever used smokeless tobacco? 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 Never used electronic cigarettes [id number] Information not available 11/14/2022 What is your exercise level? None [id number] Information not available 11/14/2022 Mental Status Question Answer Note LastModified by Organizat ion Details LastModified Time Do you feel stressed (tense, restless, nervous, or anxious, or unable to sleep at night)? [id number] Information not available 11/14/2022 Family History Relationship Description Onset Age of this Age Resolved Age Notes LastModified by Organization Details LastModified Time Mother Diabetes mellitus [id number] Not available 11/14/2022 06:12:04 Mother Hypertensive disorder [id number] Not available 11/14/2022 06:12:04 Father Malignant neoplasm of liver [id number] Not available 11/14/2022 06:12:04 Medical History Condition Response CHEST XRAY N KIDNEY STONES N CARPAL TUNNEL SYNDROME N MRSA N HISTORY OF DRUG ABUSE N COPD N RADIATION / CHEMOTHERAPY N BLOOD DISEASES N SURGERY N MUMPS N BOWEL PROBLEMS N FAILED BACK SYNDROME N STROKE/TIA N THYROID DISEASE N LYMPHEDEMA N ULCERS N OTHER MODALITIES N CERVICALGIA N TB SKIN TEST N MYOCARDIAL INFARCTION N OBESITY N PARAPELGIA N URINARY/BLADDER/KIDNEY PROBLEMS N Increased Urination N CORONARY ARTERY DISEASE (CAD) N INPATIENT PSYCH CARE N MENIERE'S DISEASE N ADDICTION CONCERNS N CAROTID STENOSIS N ENDOMETRIOSIS N Impotence N PARATHYROID DISEASE N PERIPHERAL VASCULAR DISEASE N MUSCLE,JOINT OR BONE PROBLEMS N DVT N STOMACH ULCERS N GASTROINTESTINAL BLEEDING N BLOOD CLOTS N Difficulty Urinating N PAST HISTORY OF VEHICULAR ACCIDENT N ASTHMA N USE OF NSAIDS N ARTERIAL INSUFFICIENCY N CHF N GI PROBLEMS N Low Testosterone N VISION/EYE PROBLEMS N MALE HYPOGONADISM N TOURETTE'S N ANXIETY DISORDER N CHRONIC EAR INFECTIONS N BIPOLAR DISORDER N CONDUCT DISORDER N OSTEOARTHRITIS N TUBERCULOSIS N DIVERTICULITIS N SLEEP APNEA N ALLERGIES/HAYFEVER N HEART ARRHYTHMIA N PROSTATE N INSOMNIA N PAST MEDICATION HISTORY N EYE PROBLEMS N EDEMA N HYPOTHYROIDISM N CONSTIPATION N CAROTID BLOCKAGE N MOOD DISORDER N BACK / NECK PROBLEMS N MIGRAINES N BREAST PROBLEMS N POLYCYSTIC OVARIES N FIBROMYALGIA N OSTEOPOROSIS N PERIPHERAL NEUROPATHY N APPENDICITIS N VON WILLIBRAND'S DISEASE N SEASONAL ALLERGIES N HEARTBURN / REFLUX N PLEURISY N AFIB N ADD/ADHD N Bronchoscopy N AUTISM SPECTRUM DISORDER (ASD) N SLEEP DISORDER N RETINOPATHY N HEADACHES/MIGRAINES N SLEEP STUDY N VASCULAR DISEASE N Blood Disorder N HEART DISEASE/HEART PROBLEMS N DEVELOPMENTAL OR BEHAVIORAL DISORDERS N CLAUDICATION N MULTIPLE SCLEROSIS N PULMONARY FUNCTION TEST N ANESTHESIA COMPLICATIONS N ATRIAL FIBRILLATION N Gall Stones N PULMONARY EMBOLISM N AUTOIMMUNE DISEASE N NERVE DISEASE N BLINDNESS N RHEUMATIC FEVER N BLADDER PROBLEMS N Enlarged Prostate N OTHER # 1 N POLIO N LUNG DISEASE/DISORDER N Other # 2 N EAR OR HEARING PROBLEMS N PAST SPINAL SURGERY N SCHIZOPHRENIA N FEMALE PROBLEMS / INFECTIONS N DEPRESSION (INCLUDING POST ) N CHEST CT N RENAL INSUFFICIENCY N BENIGN PROSTATIC HYPERPLASIA N MEASLES N HYPOTENSION N GERD/NAUSEA N EXCESSIVE PERSPIRATION N ANEURYSM N USE OF BLOOD THINNERS N SKIN PROBLEMS N EMPHYSEMA N SHORTNESS OF BREATH N GASTROINTESTINAL DISORDER N PTSD N CATARACTS N CONCUSSION OR SPINAL TRAUMA N ERECTILE DYSFUNCTION N VARICOSITIES N NEUROPATHY N INFERTILITY N AIDS/HIV N FRACTURES N CHEMOTHERAPY / RADIATION N LIVER DISEASE N HYPERTENSION N Deficiency N Metal allergy N BLOOD TRANSFUSION N ANEMIA/BLOOD DISORDER N BRONCHITIS N GLAUCOMA N FOOT PROBLEM N HEART VALVE DISORDERS N CHICKENPOX N BACK INJECTIONS N INFECTIOUS DISEASE N ESRD N PAST INTERVENTIONAL PAIN MANAGEMENT HIST ORY N RHEUMATOID ARTHRITIS N HIGH CHOLESTEROL / HYPERLIPIDEMIA N HYPERTHYROIDISM N UTI N PVD N EATING DISORDER N NEUROLOGICAL PROBLEMS N CHRONIC PAIN SYNDROME N ATHEROSCLEROSIS N BURSITIS N HERNIATED DISC N DIALYSIS N ECZEMA N HISTORY WITH COMPLICATIONS WITH ANESTHES IA ? N PSYCHOSIS N ARTHRITIS Y RESPIRATORY PROBLEMS N PAST HISTORY OF FALL N DIABETES, TYPE N BAD TEETH N ENT N POST LAMINECTOMY SYNDROME N HEPATITIS / LIVER DISEASE N PULMONARY DISEASE N GOUT N ALZHEIMER'S DISEASE N PAIN N Brain Problems N FATIGUE N HERPES N DEMENTIA N SEIZURES/EPILEPSY N PACEMAKER N DIZZINESS N HEAD TRAUMA OR INJURY N KIDNEY DISEASE N SCARLET FEVER N MENTAL DISORDER/ILLNESS N NEUROPSYCHOLOGICAL N CANCER: SPECIFY N CARDIAC ARRHYTHMIA N PNEUMONIA N Gynecological HistoryNo gynecological history recorded. Obstetrics History GPAL:G 0 P 0 0 0 0 Past Encounters Encounter ID Performer Location Encounter Start Date Encounter Closed Date Diagnosis/Indication Diagnosis SNOMED-CT Code Diagnosis ICD10 Code Diagnosis Note [id number] Fara Perrin MD [facility] [place] [facility] [address] [place] [address] 11/25/2020 00:00:00 11/25/2020 21:12:43 [id number] Fara Perrin MD [facility] [place] Med [address] [address] 12/26/2020 00:00:00 12/26/2020 22:19:19 [id number] Fara Perrin MD [facility] [place] Med [address] [address] 1 09/18/2021 00:00:00 09/18/2021 21:45:04 [id number] Dale Keyes MD [facility] [address] [address] [place] [address] 10/17/2021 00:00:00 10/17/2021 11:29:33 [id number] Dale Keyes MD [facility] [address] [place] [address] 01/16/2022 00:00:00 01/16/2022 14:28:20 [id number] Freddy Gomes MD [facility] [address] 12/20/2022 10:40:27 12/20/2022 12:08:15 Bilateral osteoarthritis of knees [id number] 08743 M17.0 [id number] Freddy Gomes MD [facility] [address] [address] 02/28/2023 11:11:15 02/28/2023 13:23:53 Pain of right knee joint [id number] 84076 M25.561 Pain of ri ght hip joint 2805040629 90632 M25.551 [id number] Freddy Gomes MD [facility] [address] 03/14/2023 09:00:23 03/14/2023 09:29:44 Pain of right knee joint [id number] 46801 M25.561 [id number] Freddy Gomes MD [address] [address] 04/25/2023 10:52:11 04/25/2023 11:52:58 Degenerative disorder of cartilage 770096167 M94.468 [id number] Freddy Gomes MD [address] [address] 06/06/2023 10:57:33 06/06/2023 12:17:23 Degenerative disorder of cartilage 724299036 M94.883 [id number] Freddy Gomes MD [address] [address] 09/05/2023 16:07:13 09/05/2023 16:40:34 Osteoarthritis of right knee joint 6087892036 23405 M17.11 [id number] Jono Dong MD [facility] [address] 12/05/2023 08:57:36 12/05/2023 09:41:27 Osteoarthritis of right knee joint 3929788064 12896 M17.11 Health Concerns Section Related Observation LastModified by Organization Detai ls LastModified Time None Recorded Concern Status LastModified by Organization Details LastModified Time None Recorded Advance Directives Directive N: Payers Encounter Date Sequence Insurance Name Policy Number Policy Gtz Covered Member ID Gtz Member ID Guarantor Name 03/14/2023 2 [facility] () Robert Hernandez [id number] Robert Hernandez 03/14/2023 1 [place] [id number] Samy Sarmiento Heiler [id number] Robert Pilar Thompsoniler 04/25/2023 2 [facility] () Robert Thompsoniler [id number] Robert Thompsoniler 04/25/2023 1 [place] [id number] Samy Sarmiento Heiler [id number] Robert Pilar Thompsoniler 06/06/2023 2 [facility] [employer] () Robert Thompsoniler [id number] Robert Thompsoniler 06/06/2023 1 [place] [id number] Samy Thompsoniler [id number] Robert Thompsoniler 09/05/2023 2 [facility] () Robert Thompsoniler [id number] Robert Thompsoniler 09/05/2023 1 [place] [id number] Samy Sarmiento Heiler [id number] Robert Pilar Thompsoniler 12/05/2023 2 [facility] () Robert Thompsoniler [id number] Robert Pilar Thompsoniler 12/05/2023 1 [place] [id number] Samy Sarmiento Heiler [id number] Robert Hernandez OBGyn Episode No OBEpisode recorded.
--- OUTSIDE RECORDS SUMMARY | 2025-02-21 10:50 | XMS_ITS | Continuity of Care Document ---
Author Organization [facility] [place] Address [address] [place] [address] Phone Care Team Providers Care Corporate Risk Analyst Name Role Phone [facility] Unavailable Unavail able Isabela [place] Unavailable Unavailable Procedures Procedure Date SV Plastic Sphcyl [place] +/-4d, .12-2d Fe Vision Svcs Frames Purchases Anti-reflective Coating Scratch Resistant Coating Eye Exam & Treatment Refraction SV Plastic Sph [place] To +/- 4 7 Anti-reflective Coating Tax - Medical Eye Exam & Treatment Refraction Advance Directives Directive Yes / No Effective Date File Name No Information Encounters Encounter Description Practice Location Reason(s) For Visit Diagnoses Date Provider Providers Copied on Encounter [facility], [address], [place], [place], [id number], [place] tel:[phone] SEC [facility] No Information 8-201 0 [facility] . [address] [facility], [facility] [address], [place], [place], [id number], [place]. tel:[phone] Referring Provider: Chet Caldwell, [address], [place], [address]. tel:[phone] g Provider: Isabela [place], [address] [place], [address]. tel:[phone] [facility] [place], [address] [place] [address] [address], [place], [place], [id number], tel:[phone] [facility] No Information Oct-0 6-201 0 Clark OD Chet. [address] [place] [address] , [address], [place], [address], . tel:[phone] [facility] [place], [address] [place] [address] [address], [place], [place], [id number], [place] tel:[phone] [facility] No Information Dec-1 7-200 7 [facility] . [address] [facility], [address], [place], [place], [address], . tel:[phone] Referring Provider: Chet Clark OD A, [address] [place] [address] [address], [place], [address]. tel:[phone] g Provider: Ajith Arango, [address] [place] [address], [place], [address]. tel:[phone] [facility] [place], [address] [place] [address] [address], [place], [place], [id number], tel:[phone] [facility] No Information Dec-1 5-200 7 Clark OD Chet. [address] [place] [address] , [address], [place], [address], [place]. tel:[phone] Family History Family Member Type Diagnosis Age At Onset No Information Payers Payer name Insurance type Covered libertarian ID Authornavina carlos(s) [employer] Plan [id number] Social History Type Description Quantity Date Captured Comments Sex Female Smoking Status No Information Chief Complaint And Reason For Visit No Information Reason For Referral Reason For Referral No Information History Of Present Illness Encounter Date Complaint History Of Prese nt Illness No Information Functional Status Date Functional Assessmen t No Information Instructions Date Instruction Additional Infor mation No Information Assessments Type Assessment Date No Information Patient Care Teams Name Effective Dates (start - stop) Status Members No Information
--- NOTE | 2025-02-21 11:15 | ECG_ITS ---
Test Date: 2025-02-21 11:28:08 Measurements Intervals [place] Rate: 74 P: 11 VA: 195 QRS: -4 QRSD: 98 T: 21 QT: 401 QTc: 446 Interpretive Statements SINUS RHYTHM BORDERLINE R WAVE PROGRESSION, ANTERIOR LEADS CONSIDER INFERIOR INFARCT, AGE INDETERMINATE BASELINE ARTIFACT- I, III, AVR, AVL, AVF, V1 ABNORMAL ECG No previous ECG available for comparison Electronically Signed On 02-21-2025 12:37:18 CDT by Romie Simms D.O.
[2025-02-21] MEDS: MECLIZINE HCL 25 MG TABLET PO ×2 (11:22→20:15)
[2025-02-21 11:23] LABS: Basophils Percent Auto 0.5 % (0.2-1.2); Eosinophils Percent Auto 0.7 % (0-4.4); Hematocrit 43.1 % (37.0-47.0); Hemoglobin 13.9 g/dL (12.0-15.0); Immature Granulocyte Absolute 0.02 K/mm3 (0.00-0.031); Immature Granulocyte Percent A 0.4 % (0-0.5); Lymphocytes Absolute Auto 1.58 K/mm3 (0.9-3.2); Lymphocytes Percent Auto 27.9 % (18.3-44.2); Mean Corpuscular HGB Conc 32.3 g/dl (32-36); Mean Corpuscular Hemoglobin 30.6 pg (26-34); Mean Corpuscular Volume 94.9 fl (80-100); Mean Platelet Volume 9.5 fl (7.4-10.4); Monocytes Absolute Auto 0.4 K/mm3 (0.1-0.6); Monocytes Percent Auto 7.6 % (2.6-8.5); Neutrophils Absolute Auto 3.6 K/mm3 (1.3-6.7); Neutrophils Percent Auto 62.9 % (45.5-73.1); Platelet Count Result 251 k/mm3 (150-375); Red Blood Count 4.54 M/mm3 (4.2-5.4); Red Cell Distribution Width 12.7 % (11.5-14.5); White Blood Count 5.7 K/mm3 (4.5-10.0)
[2025-02-21 11:34] LABS: Alanine Aminotransferase 18 U/L (6-35); Albumin Level 4.3 g/dL (3.5-5.1); Alkaline Phosphatase 73 U/L (38-126); Anion Gap 7 mmol/L (4-12); Aspartate Amino Transferase 27 U/L (14-36); Bilirubin,Total 0.7 mg/dL (0.2-1.3); Blood Urea Nitrogen 18 mg/dL (7-17); Calcium 9.4 mg/dL (8.4-10.2); Carbon Dioxide 29 mmol/L (22-30); Chloride 104 mmol/L (98-107); Estimated Glomerular Filt Rate > 60; Glucose 113 mg/dL (65-110); Potassium 4.6 mmol/L (3.4-5.0); Sodium 140 mmol/L (137-145); Total Protein 7.7 g/dL (6.3-8.2)
[2025-02-21 11:34] LABS: Glucose Point of Care 104 mg/dl (65-105)
--- OUTSIDE RECORDS SUMMARY | 2025-02-21 11:35 | XMS_ITS | Continuity of Care Document ---
Author Organization [facility] [place] Address [address] [place] [address] Phone Care Team Providers Care Civil Cad Designer Name Role Phone [facility] Unavailable Unavail able Isabela [place] Unavailable Unavailable Procedures Procedure Date SV Plastic Sphcyl [place] +/-4d, .12-2d Fe Vision Svcs Frames Purchases Anti-reflective Coating Scratch Resistant Coating Eye Exam & Treatment Refraction SV Plastic Sph [place] To +/- 4 7 Anti-reflective Coating Tax - Medical Eye Exam & Treatment Refraction Advance Directives Directive Yes / No Effective Date File Name No Information Encounters Encounter Description Practice Location Reason(s) For Visit Diagnoses Date Provider Providers Copied on Encounter [facility], [address], [place], [place], [id number], [place] tel:[phone] [facility] No Information 8-201 0 [facility] . [address] [facility] [address], [place], [place], [address], [place]. tel:[phone] Referring Provider: Chet Caldwell, [address], [place], [address]. tel:[phone] g Provider: Isabela [place], [address] [place], [address]. tel:[phone] [facility], [address] [place] [address] [address], [place], [place], [id number], tel:[phone] [facility] No Information Oct-0 6-201 0 Clark OD Chet. [address] [place] [address] , [address], [place], [address], . tel:[phone] [facility], [address] [place] [address] [address], [place], [place], [address], [place] tel:[phone] [facility] No Information Dec-1 7-200 7 [facility] . [address] [facility], [address], [place], [place], [address], . tel:[phone] Referring Provider: Chet Clark OD A, [address] [place] [address] [address], [place], [address]. tel:[phone] g Provider: Ajith Arango, [address] [place] [address], [place], [address]. tel:[phone] [facility], [address] [place] [address] [address], [place], [place], [address], tel:[phone] [facility] No Information Dec-1 5-200 7 Clark OD Chet. [address] [place] [address] , [address], [place], [address], [place]. tel:[phone] Family History Family Member Type Diagnosis Age At Onset No Information Payers Payer name Insurance type Covered democrat ID Authornavina carlos(s) [employer] Plan [id number] Social History Type Description Quantity Date Captured [...]
[2025-02-21 11:40] LABS: Prothrombin Time 13.4 Seconds (11.1-14.7)
[2025-02-21 11:41] LABS: Partial Thromboplastin Time 27.8 Seconds (22.3-36.8)
[2025-02-21 11:46] LABS: Troponin I < 0.012 ng/mL (0.000-0.034)
--- NOTE | 2025-02-21 12:43 | ED_ITS ---
HPI - General Adult General Chief complaint: Dizziness Stated complaint: dizziness, fall to knees Time Seen by Provider: 02/21/25 11:10 History of Present Illness HPI narrative: Patient is a 55-year-old female who presents ER with dizziness and left facial droop. Last known well last night at 10:00 p.m.. She woke up around 630 this morning with a spinning dizziness. She went back to sleep and woke up again later and it was still present. It was then knows that she had left facial weakness which is new for her. Patient did go to a [employer] park yesterday and was on a spinning ride that caused similar dizziness. Her dizziness is spinning in nature. Mild nausea. No focal weakness or numbness of an arm or leg. No history CVA. Related Data Home Medications ?Medication ?Instructions ?Recorded ?Confirmed ?Last Taken ?Type alprazolam 0.5 mg tablet 0.5 mg PO QID PRN anxiety 02/21/25 02/21/25 Unknown History sertraline 50 mg tablet 50 mg PO Q24H 02/21/25 02/21/25 Unknown History Allergies Allergy/AdvReac Type Severity Reaction Status Date / Time No Known Allergies Allergy Verified 02/21/25 11:07 Review of Systems 2 Review of Systems: All systems reviewed & are unremarkable except as noted in HPI and below Constitutional: Constitutional: Reports no additional constitutional complaints ENT: Reports system reviewed and no additional complaints, except as documented Cardiovascular: Cardiovascular: Reports no additional cardiovascular complaints Respiratory: Respiratory: Reports no additional respiratory complaints Neurologic: Reports system reviewed and no additional complaints, except as documented [facility] Past Medical History Medical History Anxiety Surgical History Surgical History History of foot surgery History of Family History Family History Mother Diabetes mellitus Father Cancer Social History Social History Smoking status: Never smoker Alcohol intake: current Drinks per week: 1 Alcohol use details: occasional Substance use: never Substance use type: does not use Do You Feel Safe in your Home?: Yes Lack of Transportation: No Lack of Food: Never True Current Housing: I Have Housing Concerned About Future Housing: No Difficulty Paying Gas/Electric Bills: No Difficulty Paying for Meds: No Currently Unemployed: No Education: Decline to Answer Difficulty w/ Childcare or Family Care: No Spiritual care concerns: No Exam 2 Narrative: GENERAL: Well-appearing, well-nourished, and in no acute distress. HEAD: Normocephalic, atraumatic. EYES: PERRLA and EOMI. Left gaze nystagmus ENT: Mucous membranes moist. NECK: Supple. CHEST: Clear to auscultation. No respiratory distress. HEART: Regular rate and rhythm. Normal peripheral pulses. ABDOMEN: Soft, nontender, nondistended. EXTREMITIES: Normal range of motion. No edema. SKIN: Warm, dry, no rash. NEURO: Patient has dizziness with left gaze nystagmus and left facial droop. She does have NIH stroke scale of 2 for her facial droop. She is able to lift both eyebrows though the left eyebrow seems slightly weaker. Alert and oriented x3. PSYCH: Normal mood and affect. Course Course Emergency Course: This could potentially be Keyes's palsy but they are too many neurologic events occurring at the same time. I have discussed with neurology who agrees and patient will be admitted to the hospitalist service for further evaluation. Will give her meclizine and also treat her with steroids and antivirals. She will receive an MRI. Vital Signs Vital signs: Vital Signs Temperature 98.3 F 02/21/25 10:56 Pulse Rate 73 02/21/25 10:56 Respiratory Rate 15 02/21/25 10:56 Blood Pressure 129/78 02/21/25 10:56 Pulse Oximetry 99 02/21/25 10:56 Temperature 97.6 F 02/21/25 15:15 Pulse Rate 67 02/21/25 15:15 Respiratory Rate 16 02/21/25 15:15 Blood Pressure 127/65 02/21/25 15:15 Pulse Oximetry 93 02/21/25 15:15 Medical Decision Making Vital Signs Vital Signs: Vital Signs Temperature 98.3 F 02/21/25 10:56 Pulse Rate 73 02/21/25 10:56 Respiratory Rate 15 02/21/25 10:56 Blood Pressure 129/78 02/21/25 10:56 Pulse Oximetry 99 02/21/25 10:56 Temperature 97.6 F 02/21/25 15:15 Pulse Rate 67 02/21/25 15:15 Respiratory Rate 16 02/21/25 15:15 Blood Pressure 127/65 02/21/25 15:15 Pulse Oximetry 93 02/21/25 15:15 Lab Data 02/21/25 11:18 02/21/25 11:18 Labs: Lab Results 02/21/25 02/21/25 Range/Units 11:18 11:32 WBC 5.7 (4.5-10.0) K/mm3 RBC 4.54 (4.2-5.4) M/mm3 Hgb 13.9 (12.0-15.0) g/dL Hct 43.1 (37.0-47.0) % MCV 94.9 (80-100) fl MCH 30.6 (26-34) pg MCHC 32.3 (32-36) g/dl RDW 12.7 (11.5-14.5) % Plt Count 251 (150-375) k/mm3 MPV 9.5 (7.4-10.4) fl Immature Gran % (Auto) 0.4 (0-0.5) % Neut % (Auto) 62.9 (45.5-73.1) % Lymph % (Auto) 27.9 (18.3-44.2) % [place] % (Auto) 7.6 (2.6-8.5) % Eos % (Auto) 0.7 (0-4.4) % Baso % (Auto) 0.5 (0.2-1.2) % Lymph # (Auto) 1.58 (0.9-3.2) K/mm3 [place] # (Auto) 0.4 (0.1-0.6) K/mm3 Eos # (Auto) 0.0 (0-0.3) K/mm3 Baso # (Auto) 0.0 (0.0-0.1) K/mm3 Abs Immat Gran (auto) 0.02 (0.00-0.031) K/mm3 Absolute Neuts (auto) 3.6 (1.3-6.7) K/mm3 Absolute Nucleated RBC 0.000 (0.0-0.012) K/mm3 Nucleated RBC % 0.0 (0.0-0.2) % PT 13.4 (11.1-14.7) Seconds INR 1.0 APTT 27.8 (22.3-36.8) Seconds Sodium 140 (137-145) mmol/L Potassium 4.6 (3.4-5.0) mmol/L Chloride 104 (98-107) mmol/L Carbon Dioxide 29 (22-30) mmol/L Anion Gap 7 (4-12) mmol/L BUN 18 H (7-17) mg/dL Creatinine 0.73 (0.7-1.0) mg/dL Estim Creat Clear Calc Not Reportable Estimated GFR > 60 (59 - ) Glucose 113 H (65-110) mg/dL POC Capillary Glucose 104 (65-105) mg/dl Hemoglobin A1c 5.7 (<5.7) % Calcium 9.4 (8.4-10.2) mg/dL Total Bilirubin 0.7 (0.2-1.3) mg/dL AST 27 (14-36) U/L ALT 18 (6-35) U/L Alkaline Phosphatase 73 (38-126) U/L Troponin I < 0.012 (0.000-0.034) ng/mL Total Protein 7.7 (6.3-8.2) g/dL Albumin 4.3 (3.5-5.1) g/dL Triglycerides 82 (<150) mg/dL Cholesterol 164 (0-200) mg/dL LDL Cholesterol Direct 35 mg/dL HDL Direct 90 mg/dL Imaging Data Radiologist's impression: ITS Impressions Chest X-Ray 02/21/25 11:34 Impression: Normal chest. Head/Neck CTA 02/21/25 12:24 Impression: Unremarkable exam. ECG Data EKG #1: ECG completion date: 02/21/25 ECG completion time: 11:28 EKG Interpretation: normal rate (74), sinus rhythm, no ST changes, normal QRS, normal QT and NL axis Critical Care Time Critical Care Time Critical Care Time: Yes Total Critical Care Time: 35 Discharge Plan Discharge Clinical Impression: Vertigo, Facial droop Patient Disposition: Still a Patient Condition: Stable Quality Stroke Scale Stroke Scale 1: Stroke scale date:: 02/21/25 1a Level of consciousness: alert-0 1b Level of consciousness questions: answers both correctly-0 1c Level of consciousness commands: obeys both correctly-0 2 Best gaze: normal-0 3 Visual: no visual loss-0 4 Facial palsy: partial paralysis-2 5a Motor: left arm: no drift-0 5b Motor: right arm: no drift-0 6a Motor: left leg: no drift-0 6b Motor: right leg: no drift-0 7 Limb ataxia: absent-0 8 Sensory: normal-0 9 Best language: no aphasia-0 10 Dysarthria: normal-0 11 Extinction and inattention: no abnormality-0 Level:: 2
--- NOTE | 2025-02-21 13:14 | PM.IMHP ---
H&P: HPI History of Present Illness Date/Time: 02/21/25 13:14 Chief Complaint: Dizziness, Stroke symptoms Narrative: This is a 55 year old female patient with a past medical history of anxiety and right knee DJD who is admitted to the hospital after seeking care for dizziness and found to have left facial droop as well. Patient states symptoms of dizziness started upon awakening this morning at 0600. She describes it as things in the room spinning and it is much worse when she moves her head side to side. Patient states she went back to sleep and woke up again around 0900 and thought she was doing better until she got out of bed and the dizziness happened again. Patient reported nausea as well. Yesterday she went on a spinning Carnival ride and had nausea, vomiting and near syncope afterwards. No emesis since being at the hospital today but nausea continues. Patient's pointed out that the left side of her face wasn't looking normal. In ER she had some weakness to the left side of forehead, for Neurology it was flattening of nasolabial fold and for me the left corner of the mouth is mildly drooped. ER initiated treatment with meclizine for vertigo presuming BPPV related to Carnival ride and also started Valtrex and prednisone for possible concurrent Keyes's Palsy. These treatments are continued on admission. PRN pain medication, anxiety medication, sleep meds, nausea medication and Tums available. MRI brain/brainstem with and without contrast ordered as well as echocardiogram with bubble study. Lipid panel normal. A1c borderline (pre-diabetes) which patient was aware of but not currently treating. Dr. Balderas with Neurology has already seen patient and agrees with workup as ordered with suspicion highest for BPV related to Carnival ride as well. Review of Systems Review of Systems: All systems reviewed & are unremarkable except as noted in HPI and below PMFSH Past Medical History Medical History Anxiety Surgical History Surgical History History of foot surgery History of Family History Family History Mother Diabetes mellitus Father Cancer Social History Social History Smoking status: Never smoker Alcohol intake: current Drinks per week: 1 Alcohol use details: occasional Substance use: never Substance use type: does not use Do You Feel Safe in your Home?: Yes Lack of Transportation: No Lack of Food: Never True Current Housing: I Have Housing Concerned About Future Housing: No Difficulty Paying Gas/Electric Bills: No Difficulty Paying for Meds: No Currently Unemployed: No Education: Decline to Answer Difficulty w/ Childcare or Family Care: No Spiritual care concerns: No Meds Home Medications and Allergies Home Medications ?Medication ?Instructions ?Recorded ?Confirmed ?Type alprazolam 0.5 mg tablet 0.5 mg PO QID PRN anxiety 02/21/25 02/21/25 History sertraline 50 mg tablet 50 mg PO Q24H 02/21/25 02/21/25 History Allergies Allergy/AdvReac Type Severity Reaction Status Date / Time No Known Allergies Allergy Verified 02/21/25 11:07 Vital Signs Vital Signs - 24 hr 02/21/25 10:56 02/21/25 11:03 Temperature 36.8 C Pulse Rate 73 79 Respiratory Rate 15 Blood Pressure 129/78 Pulse Oximetry 99 Exam Narrative: GENERAL: Well-appearing, well-nourished, and in no acute distress. HEAD: Normocephalic, atraumatic. ENT:? Mucous membranes moist. CHEST: Clear to auscultation.? No respiratory distress. HEART: Regular rate and rhythm. ? Normal peripheral pulses. ABDOMEN: Soft, nontender, nondistended. EXTREMITIES: Normal range of motion. No peripheral edema. SKIN: Warm dry normal color NEURO: Alert and oriented x3. Left sided minor facial droop, dizziness with position changes, no ataxia, horizontal nystagmus noted PSYCH: tearful at times H&P: Results Labs Labs: Short CBC 02/21/25 Range/Units 11:18 WBC 5.7 (4.5-10.0) K/mm3 Hgb 13.9 (12.0-15.0) g/dL Hct 43.1 (37.0-47.0) % Plt Count 251 (150-375) k/mm3 BMP 02/21/25 11:18 Sodium 140 Potassium 4.6 Chloride 104 Carbon Dioxide 29 BUN 18 H Creatinine 0.73 Glucose 113 H Calcium 9.4 Cardiac Enzymes 02/21/25 Range/Units 11:18 Troponin I < 0.012 (0.000-0.034) ng/mL Liver Function 02/21/25 Range/Units 11:18 Total Bilirubin 0.7 (0.2-1.3) mg/dL AST 27 (14-36) U/L ALT 18 (6-35) U/L Alkaline Phosphatase 73 (38-126) U/L Albumin 4.3 (3.5-5.1) g/dL Pulse Oximetry SpO2 results: 98-99% air Attestation: I personally reviewed and interpreted this pulse oximetry as follows: Interpretation: no need for supplemental oxygenation at this time ECG Attestation: I personally reviewed and interpreted this ECG as follows: ECG completion date: 02/21/25 ECG completion time: 11:28 Prior ECG tracings: not available for review Interpretation: Sinus rhythm rate of 74 LA interval 195 QRS duration 98 QTC 446 QRS axis -4, borderline R-wave progression, no STEMI Imaging CT scan - head: Radiologist's impression: CT ANGIOGRAM NECK AND HEAD History: Vertigo, left facial droop. Technique: Axial noncontrast imaging of the brain was performed. Serial spiral axial images through the head and neck were then obtained during arterial phase IV injection of 100 cc of Omnipaque 350. 3-D postprocessing and MIP images were then reconstructed on the remote workstation. Dose reduction technique was used on this scan by utilizing automated exposure control and iterative reconstruction technique. The dose-length product (DLP) was 1661.34 mGy-cm. CTA neck findings: Bilateral vertebral arteries are patent. Bilateral common carotid, internal carotid, and external carotid arteries are patent. No stenosis or large vessel occlusion. No aneurysm seen. The proximal right internal carotid artery demonstrates 0% stenosis relative to the normal distal artery lumen diameter. The proximal left internal carotid artery demonstrates 0% stenosis relative to the normal distal artery lumen diameter. CTA head findings: Distal vertebral arteries, basilar artery, and posterior cerebral arteries are patent. Distal internal carotid arteries, middle cerebral arteries, and anterior cerebral arteries are patent. No stenosis or large vessel occlusion seen. No aneurysm seen. Axial noncontrast imaging of the brain demonstrates no evidence for acute infarct, intracranial hemorrhage or mass lesion. No mass effect or midline shift. Norton-white differentiation intact. Ventricles and subarachnoid spaces are unremarkable. Paranasal sinuses and mastoid air cells are clear. Calvarium intact. Impression: Unremarkable exam. Reviewed, dictated and finalized at location M. Chest x-ray: Radiologist's impression: Portable chest x-ray Comparison: None Clinical History: Dizziness Findings: Lungs are clear, without focal consolidation or pleural effusion. Cardiomediastinal silhouette is unremarkable. Bones and soft tissues are unremarkable. Impression: Normal chest. Reviewed, dictated and finalized at location M. Assessment and Plan Assessment and plan (1) Stroke-like symptoms: Code(s): R29.90 - Unspecified symptoms and signs involving the nervous system Status: Acute Assessment and Plan: -Admit observation status with telemetry for MRI and Echocardiogram with bubble study to rule out stroke -Neurology consulted -Treat vertigo symptoms with meclizine PRN -Treat facial droop for possible Keyes's Palsy with Valtrex and prednisone -Lipid panel and A1c orders added -Aspirin given (2) Vertigo: Code(s): R42 - Dizziness and giddiness Status: Acute Assessment and Plan: -See above (3) Facial droop: Code(s): R29.810 - Facial weakness Status: Acute Assessment and Plan: -See above (4) Anxiety: Code(s): F41.9 - Anxiety disorder, unspecified Status: Acute Assessment and Plan: -Resume home medications of alprazolam PRN -Patient has not started sertraline yet and wants to wait to start this medication after this acute event is handled -She did get very tearful when talking about her anxiety related to her daughter moving out -Denies HI/SI or thoughts/plans to harm self or others Quality VTE Prophylaxis VTE prophylaxis: pharmacologic ordered (Lovenox) Hospitalist [facility] Advance Care Plan I have confirmed that the patient's Advanced Care Plan is present, code status is documented, or surrogate decision maker is listed in patient medical record.: Yes Medication Reconciliation I have utilized all available resources to obtain, update and review the patients current medications (includes all prescriptions, OTC, herbals, cannabis, and nutritional supplements).: Yes
[2025-02-21] MEDS: predniSONE 20 MG TABLET 60 MG PO (13:19)
[2025-02-21] MEDS: valACYclovir HCL 500 MG TABLET 1000 MG PO ×2 (13:21→21:00)
--- NOTE | 2025-02-21 15:02 | ADMGEN ---
This patient, Yahaira Tracy, was admitted to [facility] Surg Room 309-01. Patient/family oriented to hospital policies and general routines including ID bracelet, bed and alarms, visiting hours, pain management, procedures, bathroom and other care routines, personal items, smoking policy, room service/diet, and visiting hours. Information on how to activate the Rapid Response Team has been discussed. Patient/Family are encouraged to report perceived risks to care and to ask questions if they do not understand what they are told or what they should do.
[2025-02-21 15:12] LABS: Cholesterol 164 mg/dL (0-200); HDL Direct 90 mg/dL; Triglycerides 82 mg/dL (<150)
[2025-02-21 15:14] LABS: Hemoglobin A1C 5.7 % (<5.7)
[2025-02-21] MEDS: ASPIRIN 81 MG CHEWABLE TABLET 324 MG PO (15:16)
[2025-02-21 15:24] LABS: LDL Cholesterol Direct 35 mg/dL
--- NOTE | 2025-02-21 16:31 | P.CONNEU_ITS ---
Assessment and Plan Assessment and plan (1) Vertigo: Code(s): R42 - Dizziness and giddiness Status: Acute (2) Stroke-like symptoms: Code(s): R29.90 - Unspecified symptoms and signs involving the nervous system Status: Acute Plan Neurologic examination does show mild flattening of the left nasal labial fold. Other than that she continues to be symptomatic with vertigo. Whereas we should manage her symptomatically and MRI the brain is also desired with and without contrast. Echocardiogram has also been ordered. Her LDL was 35. She is currently on aspirin 81 mg a day. She is on meclizine 25 mg 4 times a day. In addition she is also to receive Zofran on as-needed basis. She has been given prednisone 60 mg once and thereafter daily. The patient states that she did go on a [id number] yesterday and is wondering if this could have led to the onset of the symptoms today. I shall follow her up with the results MRI. Consult date: 02/21/25 HPI: Yahaira Tracy is a 55 year old female woke up in the morning with the symptoms of vertigo or things spinning around her head. Did not have any nausea vomiting or headache. She denies any diplopia or difficulty swallowing or speech. She also denies any weakness or in upper lower limbs. However her has noted that her left side of the face appears somewhat weaker. She denies any tinnitus or hearing loss. No recent febrile illness. No history of head trauma. She denies any history of vertigo on and off in the past. He did have some nausea vomiting last Saturday or 2 days ago. Review of Systems 2 Review of Systems: All systems reviewed & are unremarkable except as noted in HPI and below PMFSH Past Medical History Medical History Anxiety Surgical History Surgical History History of foot surgery History of Family History Family History Mother Diabetes mellitus Father Cancer Social History Social History Smoking status: Never smoker Alcohol intake: current Alcohol use details: occasional Substance use type: does not use Current Housing: Decline to Answer Concerned About Future Housing: Decline to Answer Difficulty Paying Gas/Electric Bills: Decline to Answer Difficulty Paying for Meds: Decline to Answer Currently Unemployed: Decline to Answer Education: Decline to Answer Difficulty w/ Childcare or Family Care: Decline to Answer Meds Home Medications and Allergies Home Medications ?Medication ?Instructions ?Recorded ?Confirmed ?Type alprazolam 0.5 mg tablet 0.5 mg PO QID PRN anxiety 02/21/25 02/21/25 History sertraline 50 mg tablet 50 mg PO Q24H 02/21/25 02/21/25 History Allergies Allergy/AdvReac Type Severity Reaction Status Date / Time No Known Allergies Allergy Verified 02/21/25 11:07 Vital Signs Vital Signs - 24 hr 02/21/25 10:56 02/21/25 11:03 02/21/25 13:15 Temperature 98.3 F Pulse Rate 73 79 73 Respiratory Rate 15 16 Blood Pressure 129/78 120/63 Pulse Oximetry 99 98 02/21/25 14:42 02/21/25 15:15 Temperature 97.6 F Pulse Rate 78 67 Respiratory Rate 16 16 Blood Pressure 138/86 127/65 Pulse Oximetry 98 93 Exam 2 Const: General: cooperative, well developed and alert O rientation/consciousness: patient oriented x3 HENMT: Head: atraumatic Eyes: Alignment and Position: position normal Pupils: Equal, round and reactive pupils present EOM: EOMs intact bilaterally Neck: Neck: supple Resp: Effort & Inspection: normal respiratory effort Neuro: General: patient oriented x3 Cranial nerves: Yes CN's II-XII intact bilaterally ( There is a slight flattening of the left nasal labial fold ), Yes facial sensation intact/muscles of mastication intact, Yes Equal, round and reactive pupils present and Yes Midline tongue present Cognition (Neuro): n ormal cognition Speech: normal speech Gait exam (Neuro): Normal gait present Motor exam (neuro): 5/5 motor strength present throughout Sensory Exam: normal sensation Coordination: [id number] test normal and Normal rapid alternating movements of the distal upper extremity present (Neuro) O ther: Heel to logan test was also normal on both sides. No nystagmus was seen. No intention tremors were noted. slight flattening of the left nasolabial fold compared to the right side. Results Labs 02/21/25 11:18 02/21/25 11:18 Labs: Short CBC 02/21/25 Range/Units 11:18 WBC 5.7 (4.5-10.0) K/mm3 Hgb 13.9 (12.0-15.0) g/dL Hct 43.1 (37.0-47.0) % Plt Count 251 (150-375) k/mm3 BMP 02/21/25 11:18 Sodium 140 Potassium 4.6 Chloride 104 Carbon Dioxide 29 BUN 18 H Creatinine 0.73 Glucose 113 H Calcium 9.4 Cardiac Enzymes 02/21/25 Range/Units 11:18 Troponin I < 0.012 (0.000-0.034) ng/mL Liver Function 02/21/25 Range/Units 11:18 Total Bilirubin 0.7 (0.2-1.3) mg/dL AST 27 (14-36) U/L ALT 18 (6-35) U/L Alkaline Phosphatase 73 (38-126) U/L Albumin 4.3 (3.5-5.1) g/dL
[2025-02-21] MEDS: ALPRAZolam (*CRX) 0.5 MG TABLET PO (20:14)
[2025-02-22] VITALS (9 sets, daily range): BP systolic 95–114; BP diastolic 59–70; PULSE 58–80; RESP 16–20; TEMP 36.1–36.7; O2SAT 91–98
--- NOTE | 2025-02-22 | ECHO_ITS ---
Patient Info Name: Yahaira Tracy Age: 55 years : 1970 Gender: Female Ht: 71 in Wt: 199 lbs BSA: 2.14 m2 HR: 70 bpm BP: 95 / 70 mmHg Heart Rhythm: Sinus Rhythm Technical Quality: Good Exam Date: 02/22/2025 1:59 PM Patient Status: O Admit Date: 02/21/2025 Exam Type: CA echo doppler w bubble study Complete two-dimensional, color flow and Doppler transthoracic echocardiogram is performed with agitated saline. Staff Referring Physician: John Nino MD Cloth Weigher: Brenda Sanz Attending Provider: Tboin Oviedo Contrast/Agitated Saline Contrast/Ag. Saline: Agitated Saline Amount: 20.00 ml Existing IV Access: Yes IV Access Condition: patent with no signs of infiltration Summary 1. Left ventricular chamber dimension is normal. 2. Left ventricular systolic function is normal, estimated at 65-70. 3. The left ventricular diastolic function is grade I diastolic dysfunction. 4. Right ventricular systolic function is normal. 5. Suspected patent foramen ovale visualized by agitated saline imaging. Positive bubble study with a right to left shunt. 6. No significant valvular disease. Left Ventricle Left ventricular chamber dimension is normal. Left ventricular systolic function is normal, estimated at 65-70. There is no increased left ventricular wall thickness. The left ventricular diastolic function is grade I diastolic dysfunction. Right Ventricle Right ventricular chamber dimension is normal. Right ventricular systolic function is normal. Left Atria Left atrial chamber dimension is normal. Right Atria Right atrial chamber dimension is normal. Atrial Septum Suspected patent foramen ovale visualized by agitated saline imaging. Positive bubble study with a right to left shunt. Aortic Valve The aortic valve is trileaflet. There is no aortic valve stenosis. There is no aortic valve regurgitation. Pulmonic Valve The pulmonic valve is not well visualized. Mitral Valve There is trace mitral valve regurgitation. Tricuspid Valve There is trace tricuspid valve regurgitation. Pericardium/Pleural There is no pericardial effusion. Inferior Vena Cava Normal inferior vena cava with >50% collapse upon inspiration consistent with normal right atrial pressure, 3 mmHg. Aorta The aortic root size at the sinus of Valsalva is normal. Left Ventricular Outflow Tract Name Value Normal LVOT 2D LVOT Diameter 2.0 cm LVOT Doppler LVOT Peak Velocity 100 cm/s LVOT Peak Gradient 4 mmHg LVOT Mean Gradient 2 mmHg LVOT VTI 18 cm LVOT VTI/AV VTI Ratio 0.8 LVOT Stroke Volume 59 ml LVOT CO 4.3 l/min LVOT CI 2.0 l/min/m2 Pulmonic Valve Name Value Normal RVOT Doppler RVOT Peak Velocity 82 cm/s RVOT Peak Gradient 3 mmHg PV Doppler PV Peak Velocity 142 cm/s PV Peak Gradient 8 mmHg Mitral Valve Name Value Normal MV Diastolic Function MV E Peak Velocity 78 cm/s MV A Peak Velocity 112 cm/s MV E/A 0.7 MV Decel Time (PW) 197 ms MV Annular TDI MV E/e' (Septal) 12.0 MV E/e' (Lateral) 11.6 MV E/e' (Average) 11.8 Tricuspid Valve Name Value Normal TV Regurgitation Doppler TR Peak Velocity 231 cm/s TR Peak Gradient 21 mmHg Estimated PAP/RSVP RA Pressure 3 mmHg <=5 PA Systolic Pressure 24 mmHg <36 RV Systolic Pressure 24 mmHg <36 TV Annular TDI TV Lateral Luba s' Velocity 15.3 cm/s >=9.5 Aorta Name Value Normal Ascending Aorta Ao Root Diameter (MM) 3.3 cm Ao Root Diam Index (MM) 1.6 cm/m2 Aortic Valve Name Value Normal AV Doppler AV Peak Velocity 125 cm/s AV Peak Gradient 6 mmHg AV Mean Gradient 4 mmHg AV VTI 23 cm AV Area (Cont Eq VTI) 2.5 cm2 >=3.0 AV Area (Cont Eq Vaughn) 2.6 cm2 AV DI (Vaughn) 0.80 AV Regurgitation 2D LVOT Area 3.3 cm2 Ventricles Name Value Normal LV Dimensions 2D/MM IVS Diastolic Thickness (2D) 0.9 cm 0.6-1.0 LVID Diastole (2D) 5.6 cm 3.8-5.2 LVIW Diastolic Thickness (2D) 0.8 cm 0.6-0.9 LVID Systole (2D) 3.2 cm 2.2-3.5 LVOT Diameter 2.0 cm LV Mass (2D Cubed) 180.30 g 67.00-162.00 LV Mass Index (2D Cubed) 84 g/m2 43-95 Relative Wall Thickness (2D) 0.28 <=0.42 LV Fractional Shortening/Ejection Fraction 2D/MM LV Fractional Shortening (2D) 42 % 27-45 LV EF (2D Teichholz) 73 % LV Diastolic Volume (4C MOD) 69 ml LV EF (4C MOD) 67 % LV Diastolic Volume (2C MOD) 81 ml LV EF (2C MOD) 71 % LV Diastolic Volume (BP MOD) 75 ml 46-106 LV Diastolic Volume Index (BP MOD) 35 ml/m2 29-61 LV Systolic Volume (BP MOD) 24 ml 14-42 LV Systolic Volume Index (BP MOD) 11 ml/m2 8-24 LV EF (BP MOD) 68 % 54-74 LV Diastolic Length (4C) 7.9 cm LV Systolic Length (4C) 6.4 cm LV Stroke Volume (4C MOD) 46 ml Atria Name Value Normal LA Dimensions LA Dimension (MM) 4.8 cm 2.7-3.8 LA Volume (4C A-L) 52 ml LA Volume (BP A-L) 57 ml RA Dimensions RA Area (4C) 9.8 cm2 <=18.0 Report Signatures
[2025-02-22] MEDS: valACYclovir HCL 500 MG TABLET 1000 MG PO ×3 (05:31→20:50)
[2025-02-22 05:59] LABS: Hematocrit 43.1 % (37.0-47.0); Hemoglobin 13.8 g/dL (12.0-15.0); Immature Granulocyte Absolute 0.03 K/mm3 (0.00-0.031); Immature Granulocyte Percent A 0.4 % (0-0.5); Lymphocytes Absolute Auto 1.33 K/mm3 (0.9-3.2); Lymphocytes Percent Auto 16.4 % (18.3-44.2); Mean Corpuscular Hemoglobin 30.9 pg (26-34); Mean Corpuscular Volume 96.4 fl (80-100); Mean Platelet Volume 9.8 fl (7.4-10.4); Monocytes Absolute Auto 0.5 K/mm3 (0.1-0.6); Monocytes Percent Auto 6.5 % (2.6-8.5); Neutrophils Absolute Auto 6.2 K/mm3 (1.3-6.7); Neutrophils Percent Auto 76.7 % (45.5-73.1); Platelet Count Result 253 k/mm3 (150-375); Red Blood Count 4.47 M/mm3 (4.2-5.4); Red Cell Distribution Width 12.6 % (11.5-14.5); White Blood Count 8.1 K/mm3 (4.5-10.0)
[2025-02-22 06:22] LABS: Alanine Aminotransferase 20 U/L (6-35); Albumin Level 4.3 g/dL (3.5-5.1); Alkaline Phosphatase 66 U/L (38-126); Anion Gap 9 mmol/L (4-12); Aspartate Amino Transferase 26 U/L (14-36); Bilirubin,Total 0.7 mg/dL (0.2-1.3); Blood Urea Nitrogen 18 mg/dL (7-17); Calcium 9.4 mg/dL (8.4-10.2); Carbon Dioxide 26 mmol/L (22-30); Chloride 104 mmol/L (98-107); Estimated CRCL calculation 88 ml/min; Estimated Glomerular Filt Rate > 60; Glucose 132 mg/dL (65-110); Magnesium 2.2 mg/dL (1.6-2.3); Potassium 4.1 mmol/L (3.4-5.0); Sodium 139 mmol/L (137-145); Total Protein 7.5 g/dL (6.3-8.2)
--- NOTE | 2025-02-22 07:22 | P.PNIM_ITS ---
Progress Note: A&P Assessment and Plan (1) Stroke-like symptoms: Code(s): R29.90 - Unspecified symptoms and signs involving the nervous system Status: Acute Assessment and Plan: * Admit observation status with telemetry for MRI and Echocardiogram with bubble study to rule out stroke * Neurology consulted * Treat vertigo symptoms with meclizine PRN * Treat facial droop for possible Keyes's Palsy with Valtrex and prednisone * Lipid panel and A1c orders added * Aspirin given * Brain MRI, Echocardiogram pending at this time * Neurology consult, appreciate further recommendations (2) Vertigo: Code(s): R42 - Dizziness and giddiness Status: Acute Assessment and Plan: * See above (3) Facial droop: Code(s): R29.810 - Facial weakness Status: Acute Assessment and Plan: * See above (4) Anxiety: Code(s): F41.9 - Anxiety disorder, unspecified Status: Acute Assessment and Plan: * Resume home medications of alprazolam PRN * Patient has not started sertraline yet and wants to wait to start this medication after this acute event is handled * She did get very tearful when talking about her anxiety related to her daughter moving out * Denies HI/SI or thoughts/plans to harm self or others Subjective Date/time seen: 02/22/25 07:22 Interval history: 55 year old female patient with a past medical history of anxiety and right knee DJD who is admitted to the hospital after seeking care for dizziness and found to have left facial droop as well. 02/22/2025 Patient sitting comfortably in bed at time of exam. Denies CP, SOB, n/v, headache/dizziness, or abdominal pain at this time. No evidence of facial droop, slurred speech, or neurological deficit on exam. Pending echo and Brain MRI. Neurology to continue following. Did complain of some dizziness when she walked to the bathroom, this subsided when she sat bad down in the bed. Otherwise no complaints at this time. Review of Systems Review of Systems: All systems reviewed & are unremarkable except as noted in HPI and below Exam Narrative: GENERAL: Well-appearing, well-nourished, and in no acute distress. HEAD: Normocephalic, atraumatic. ENT:? Mucous membranes moist. CHEST: Clear to auscultation.? No respiratory distress. HEART: Regular rate and rhythm. ? Normal peripheral pulses. ABDOMEN: Soft, nontender, nondistended. EXTREMITIES: Normal range of motion. No peripheral edema. SKIN: Warm dry normal color NEURO: Alert and oriented x3. No facial droop, yes dizziness with position changes, no ataxia, horizontal nystagmus noted PSYCH: tearful at times Objective Data Vital Signs Vital Signs: Vital Signs - 24 hr 02/21/25 10:56 02/21/25 11:03 02/21/25 13:15 Temperature 98.3 F Pulse Rate 73 79 73 Respiratory Rate 15 16 Blood Pressure 129/78 120/63 Pulse Oximetry 99 98 Oxygen Delivery 02/21/25 14:42 02/21/25 15:15 02/21/25 20:00 Temperature 97.6 F Pulse Rate 78 67 Respiratory Rate 16 16 Blood Pressure 138/86 127/65 Pulse Oximetry 98 93 Oxygen Delivery Room Air 02/21/25 20:00 02/21/25 20:41 02/21/25 21:10 Temperature 97.5 F L Pulse Rate 89 84 Respiratory Rate 16 Blood Pressure 128/63 Pulse Oximetry 95 95 Oxygen Delivery Room Air 02/22/25 00:00 02/22/25 04:00 02/22/25 05:58 Temperature 96.9 F L Pulse Rate 72 58 L 70 Respiratory Rate 20 Blood Pressure 95/70 L Pulse Oximetry 98 Oxygen Delivery Intake/Output Intake/Output: Intake & Output 02/19/25 02/20/25 02/21/25 02/22/25 23:59 23:59 23:59 23:59 Intake Total 240 Balance 240 Meds/Results Medications: Active Medications Generic Name Dose Route Start Last Admin Trade Name Freq PRN Reason Stop Dose Admin Acetaminophen 650 mg 02/21/25 13:08 Acetaminophen 325 Mg Tablet PO Q4H PRN Pain Rated 5 or Less or Fever Hydrocodone Bitart/Acetaminophen 1 tab 02/21/25 13:08 Hydrocodone/Acetaminophen (*Crx) 5-325 Mg Tablet PO Q4H PRN Pain Rated 6 or Greater Alprazolam 0.5 mg 02/21/25 14:41 02/21/25 20:14 Alprazolam (*Crx) 0.5 Mg Tablet PO 0.5 mg QID PRN Administration anxiety Aspirin 81 mg 02/22/25 08:00 Aspirin 81 Mg Chewable Tablet PO DAILY@0800 [facility] [place] Calcium Carbonate 200 mg 02/21/25 18:16 Calcium Carbonate (Tums) 500 Mg (200 Mg Elemental) PO Q6H PRN Indigestion Enoxaparin Sodium 40 mg 02/22/25 09:00 Enoxaparin 40 Mg/0.4 Ml Syringe SUB-Q DAILY [facility] [place] Meclizine HCl 25 mg 02/21/25 14:43 02/21/25 20:15 Meclizine Hcl 25 Mg Tablet PO 25 mg QID PRN Administration dizziness Ondansetron HCl 4 mg 02/21/25 13:08 Ondansetron Inj 4 Mg/2 Ml Vial IV PUSH Q4H PRN Nausea Perflutren Lipid Microsphere 0 ml 02/21/25 14:47 Perflutren Lipid Microspheres 1.5 Ml Vial Diluted To 10 Ml Total Volume IV PUSH 02/24/25 14:47 ONCE PRN adequate visualization Protocol Prednisone 60 mg 02/22/25 08:00 Prednisone 20 Mg Tablet PO DAILY@0800 [facility] [place] Trazodone HCl 50 mg 02/21/25 18:54 Trazodone Hcl 50 Mg Tablet PO HS PRN Insomnia Valacyclovir HCl 1,000 mg 02/21/25 22:00 02/22/25 05:31 Valacyclovir Hcl 500 Mg Tablet PO 1,000 mg Q8HR RUY Administration Radiology Results: ITS Impressions Chest X-Ray 02/21/25 11:34 Impression: Normal chest. Head/Neck CTA 02/21/25 12:24 Impression: Unremarkable exam. Labs Labs: Laboratory Results - last 24 hr 02/21/25 02/21/25 02/22/25 11:18 11:32 05:27 WBC 5.7 RBC 4.54 Hgb 13.9 Hct 43.1 MCV 94.9 MCH 30.6 MCHC 32.3 RDW 12.7 Plt Count 251 MPV 9.5 Immature Gran % (Auto) 0.4 Neut % (Auto) 62.9 Lymph % (Auto) 27.9 [place] % (Auto) 7.6 Eos % (Auto) 0.7 Baso % (Auto) 0.5 Lymph # (Auto) 1.58 [place] # (Auto) 0.4 Eos # (Auto) 0.0 Baso # (Auto) 0.0 Abs Immat Gran (auto) 0.02 Absolute Neuts (auto) 3.6 Absolute Nucleated RBC 0.000 Nucleated RBC % 0.0 PT 13.4 INR 1.0 APTT 27.8 Sodium 140 139 Potassium 4.6 4.1 Chloride 104 104 Carbon Dioxide 29 26 Anion Gap 7 9 BUN 18 H 18 H Creatinine 0.73 0.68 L Estim Creat Clear Calc Not Reportable 88 Estimated GFR > 60 > 60 Glucose 113 H 132 H POC Capillary Glucose 104 Hemoglobin A1c 5.7 Calcium 9.4 9.4 Magnesium 2.2 Total Bilirubin 0.7 0.7 AST 27 26 ALT 18 20 Alkaline Phosphatase 73 66 Troponin I < 0.012 Total Protein 7.7 7.5 Albumin 4.3 4.3 Triglycerides 82 Cholesterol 164 LDL Cholesterol Direct 35 HDL Direct 90 02/22/25 05:28 WBC 8.1 RBC 4.47 Hgb 13.8 Hct 43.1 MCV 96.4 MCH 30.9 MCHC 32.0 RDW 12.6 Plt Count 253 MPV 9.8 Immature Gran % (Auto) 0.4 Neut % (Auto) 76.7 H Lymph % (Auto) 16.4 L [place] % (Auto) 6.5 Eos % (Auto) 0.0 Baso % (Auto) 0.0 L Lymph # (Auto) 1.33 [place] # (Auto) 0.5 Eos # (Auto) 0.0 Baso # (Auto) 0.0 Abs Immat Gran (auto) 0.03 Absolute Neuts (auto) 6.2 Absolute Nucleated RBC 0.000 Nucleated RBC % 0.0 PT INR APTT Sodium Potassium Chloride Carbon Dioxide Anion Gap BUN Creatinine Estim Creat Clear Calc Estimated GFR Glucose POC Capillary Glucose Hemoglobin A1c Calcium Magnesium Total Bilirubin AST ALT Alkaline Phosphatase Troponin I Total Protein Albumin Triglycerides Cholesterol LDL Cholesterol Direct HDL Direct Quality VTE Prophylaxis VTE prophylaxis: pharmacologic ordered (Lovenox)
[2025-02-22] MEDS: ASPIRIN 81 MG CHEWABLE TABLET PO (08:36)
[2025-02-22] MEDS: predniSONE 20 MG TABLET 60 MG PO (08:36)
[2025-02-22] MEDS: ENOXAPARIN 40 MG/0.4 ML SYRINGE SUB-Q (08:36)
[2025-02-22] MEDS: ALPRAZolam (*CRX) 0.5 MG TABLET PO (10:49)
--- NOTE | 2025-02-22 11:51 | P.PNNEUR_ITS ---
Progress Note: A&P Assessment and Plan (1) Stroke-like symptoms: Code(s): R29.90 - Unspecified symptoms and signs involving the nervous system Status: Acute (2) Vertigo: Code(s): R42 - Dizziness and giddiness Status: Acute Plan We shall follow the results of MRI of the brain and advise further. The vertigo seems to be improving. Subjective Date/time seen: 02/22/25 11:51 Interval history: The patient 55-year-old admitted with the vertigo and left facial weakness. She reports the vertigo is subsiding. No additional new symptoms were reported. She is scheduled to have a MRI of the brain with and without contrast today. Review of Systems Review of Systems: All systems reviewed & are unremarkable except as noted in HPI and below Exam Narrative: Fully conscious alert. Oriented to self time place and person. . No aphasia or dysarthria. No facial asymmetry noted on examination today. Remainder of the examination findings are essentially unchanged. Objective Data Vital Signs Vital Signs: Vital Signs - 24 hr 02/21/25 13:15 02/21/25 14:42 02/21/25 15:15 Temperature 97.6 F Pulse Rate 73 78 67 Respiratory Rate 16 16 16 Blood Pressure 120/63 138/86 127/65 Pulse Oximetry 98 98 93 Oxygen Delivery 02/21/25 20:00 02/21/25 20:00 02/21/25 20:41 Temperature 97.5 F L Pulse Rate 89 84 Respiratory Rate 16 Blood Pressure 128/63 Pulse Oximetry 95 Oxygen Delivery Room Air 02/21/25 21:10 02/22/25 00:00 02/22/25 04:00 Temperature Pulse Rate 72 58 L Respiratory Rate Blood Pressure Pulse Oximetry 95 Oxygen Delivery Room Air 02/22/25 05:58 02/22/25 08:36 02/22/25 08:36 Temperature 96.9 F L Pulse Rate 70 68 Respiratory Rate 20 Blood Pressure 95/70 L Pulse Oximetry 98 Oxygen Delivery Room Air Intake/Output Intake/Output: Intake & Output 02/19/25 02/20/25 02/21/25 02/22/25 23:59 23:59 23:59 23:59 Intake Total 240 240 Balance 240 240 Meds/Results Medications: Active Medications Generic Name Dose Route Start Last Admin Trade Name Freq PRN Reason Stop Dose Admin Acetaminophen 650 mg 02/21/25 13:08 Acetaminophen 325 Mg Tablet PO Q4H PRN Pain Rated 5 or Less or Fever Hydrocodone Bitart/Acetaminophen 1 tab 02/21/25 13:08 Hydrocodone/Acetaminophen (*Crx) 5-325 Mg Tablet PO Q4H PRN Pain Rated 6 or Greater Alprazolam 0.5 mg 02/21/25 14:41 02/22/25 10:49 Alprazolam (*Crx) 0.5 Mg Tablet PO 0.5 mg QID PRN Administration anxiety Aspirin 81 mg 02/22/25 08:00 02/22/25 08:36 Aspirin 81 Mg Chewable Tablet PO 81 mg DAILY@0800 RUY Administration Calcium Carbonate 200 mg 02/21/25 18:16 Calcium Carbonate (Tums) 500 Mg (200 Mg Elemental) PO Q6H PRN Indigestion Enoxaparin Sodium 40 mg 02/22/25 09:00 02/22/25 08:36 Enoxaparin 40 Mg/0.4 Ml Syringe SUB-Q 40 mg DAILY RUY Administration Meclizine HCl 25 mg 02/21/25 14:43 02/21/25 20:15 Meclizine Hcl 25 Mg Tablet PO 25 mg QID PRN Administration dizziness Ondansetron HCl 4 mg 02/21/25 13:08 Ondansetron Inj 4 Mg/2 Ml Vial IV PUSH Q4H PRN Nausea Perflutren Lipid Microsphere 0 ml 02/21/25 14:47 Perflutren Lipid Microspheres 1.5 Ml Vial Diluted To 10 Ml Total Volume IV PUSH 02/24/25 14:47 ONCE PRN adequate visualization Protocol Prednisone 60 mg 02/22/25 08:00 02/22/25 08:36 Prednisone 20 Mg Tablet PO 60 mg DAILY@0800 RUY Administration Trazodone HCl 50 mg 02/21/25 18:54 Trazodone Hcl 50 Mg Tablet PO HS PRN Insomnia Valacyclovir HCl 1,000 mg 02/21/25 22:00 02/22/25 05:31 Valacyclovir Hcl 500 Mg Tablet PO 1,000 mg Q8HR RUY Administration Radiology Results: ITS Impressions Chest X-Ray 02/21/25 11:34 Impression: Normal chest. Head/Neck CTA 02/21/25 12:24 Impression: Unremarkable exam. Labs Labs: Laboratory Results - last 24 hr 02/21/25 02/22/25 02/22/25 11:18 05:27 05:28 WBC 8.1 RBC 4.47 Hgb 13.8 Hct 43.1 MCV 96.4 MCH 30.9 MCHC 32.0 RDW 12.6 Plt Count 253 MPV 9.8 Immature Gran % (Auto) 0.4 Neut % (Auto) 76.7 H Lymph % (Auto) 16.4 L [place] % (Auto) 6.5 Eos % (Auto) 0.0 Baso % (Auto) 0.0 L Lymph # (Auto) 1.33 [place] # (Auto) 0.5 Eos # (Auto) 0.0 Baso # (Auto) 0.0 Abs Immat Gran (auto) 0.03 Absolute Neuts (auto) 6.2 Absolute Nucleated RBC 0.000 Nucleated RBC % 0.0 Sodium 139 Potassium 4.1 Chloride 104 Carbon Dioxide 26 Anion Gap 9 BUN 18 H Creatinine 0.68 L Estim Creat Clear Calc 88 Estimated GFR > 60 Glucose 132 H Hemoglobin A1c 5.7 Calcium 9.4 Magnesium 2.2 Total Bilirubin 0.7 AST 26 ALT 20 Alkaline Phosphatase 66 Total Protein 7.5 Albumin 4.3 Triglycerides 82 Cholesterol 164 LDL Cholesterol Direct 35 HDL Direct 90
[2025-02-22] MEDS: traZODone HCL 50 MG TABLET PO (20:50)
[2025-02-23] VITALS: PULSE 78
[2025-02-23] MEDS: ALPRAZolam (*CRX) 0.5 MG TABLET PO (01:35)
[2025-02-23 04:00] VITALS: PULSE 58
[2025-02-23] MEDS: valACYclovir HCL 500 MG TABLET 1000 MG PO ×2 (05:52→13:15)
[2025-02-23 05:57] LABS: Basophils Percent Auto 0.3 % (0.2-1.2); Eosinophils Percent Auto 0.1 % (0-4.4); Hemoglobin 13.8 g/dL (12.0-15.0); Immature Granulocyte Absolute 0.04 K/mm3 (0.00-0.031); Immature Granulocyte Percent A 0.4 % (0-0.5); Lymphocytes Absolute Auto 2.97 K/mm3 (0.9-3.2); Lymphocytes Percent Auto 29.6 % (18.3-44.2); Mean Corpuscular HGB Conc 32.1 g/dl (32-36); Mean Corpuscular Hemoglobin 31.2 pg (26-34); Mean Corpuscular Volume 97.1 fl (80-100); Mean Platelet Volume 10.1 fl (7.4-10.4); Monocytes Absolute Auto 0.6 K/mm3 (0.1-0.6); Monocytes Percent Auto 5.9 % (2.6-8.5); Neutrophils Absolute Auto 6.4 K/mm3 (1.3-6.7); Neutrophils Percent Auto 63.7 % (45.5-73.1); Platelet Count Result 246 k/mm3 (150-375); Red Blood Count 4.43 M/mm3 (4.2-5.4); Red Cell Distribution Width 12.8 % (11.5-14.5)
[2025-02-23 06:00] VITALS: BP 140/75; PULSE 98; RESP 16; TEMP 36.8; O2SAT 97
[2025-02-23 06:26] LABS: Alanine Aminotransferase 18 U/L (6-35); Albumin Level 4.1 g/dL (3.5-5.1); Alkaline Phosphatase 74 U/L (38-126); Anion Gap 9 mmol/L (4-12); Aspartate Amino Transferase 23 U/L (14-36); Bilirubin,Total 0.6 mg/dL (0.2-1.3); Blood Urea Nitrogen 18 mg/dL (7-17); Calcium 8.7 mg/dL (8.4-10.2); Carbon Dioxide 22 mmol/L (22-30); Chloride 108 mmol/L (98-107); Estimated CRCL calculation 85 ml/min; Estimated Glomerular Filt Rate > 60; Glucose 104 mg/dL (65-110); Magnesium 2.3 mg/dL (1.6-2.3); Potassium 4.1 mmol/L (3.4-5.0); Sodium 139 mmol/L (137-145); Total Protein 7.4 g/dL (6.3-8.2)
[2025-02-23] MEDS: predniSONE 20 MG TABLET 60 MG PO (07:44)
[2025-02-23] MEDS: ENOXAPARIN 40 MG/0.4 ML SYRINGE SUB-Q (07:44)
[2025-02-23] MEDS: ASPIRIN 81 MG CHEWABLE TABLET PO (07:45)
[2025-02-23 08:00] VITALS: PULSE 64
[2025-02-23 12:00] VITALS: PULSE 76
[2025-02-23 13:54] VITALS: BP 116/58; PULSE 74; RESP 14; TEMP 36.2; O2SAT 98
--- NOTE | 2025-02-23 14:22 | P.DS_ITS ---
DS: Admitting Diagnosis Discharge Date 02/23/2025 Admitting Diagnosis Facial droop Vertigo DS: Discharge Diagnosis Discharge Diagnosis (1) Stroke-like symptoms: Code(s): R29.90 - Unspecified symptoms and signs involving the nervous system Status: Acute (2) Vertigo: Code(s): R42 - Dizziness and giddiness Status: Acute (3) Facial droop: Code(s): R29.810 - Facial weakness Status: Acute (4) Anxiety: Code(s): F41.9 - Anxiety disorder, unspecified Status: Acute DS: Summary Hospital Course Reason for hospitalization: Dizziness, Stroke symptoms Hospital Course: This is a 55 year old female patient with a past medical history of anxiety and right knee DJD who is admitted to the hospital after seeking care for dizziness and found to have left facial droop as well. Patient states symptoms of dizziness started upon awakening this morning at 0600. She describes it as things in the room spinning and it is much worse when she moves her head side to side. Patient states she went back to sleep and woke up again around 0900 and thought she was doing better until she got out of bed and the dizziness happened again. Patient reported nausea as well. Yesterday she went on a spinning Carnival ride and had nausea, vomiting and near syncope afterwards. No emesis since being at the hospital today but nausea continues. Patient's pointed out that the left side of her face wasn't looking normal. In ER she had some weakness to the left side of forehead, for Neurology it was flattening of nasolabial fold and for me the left corner of the mouth is mildly drooped. ER initiated treatment with meclizine for vertigo presuming BPPV related to Carnival ride and also started Valtrex and prednisone for possible concurrent Keyes's Palsy. These treatments are continued on admission. PRN pain medication, anxiety medication, sleep meds, nausea medication and Tums available. MRI brain/brainstem with and without contrast ordered as well as ec hocardiogram with bubble study. Lipid panel normal. A1c borderline (pre- diabetes) which patient was aware of but not currently treating. Dr. Swan with Neurology has already seen patient and agrees with workup as ordered with suspicion highest for BPV related to Carnival ride as well. Neurology consulted regarding stroke-like symptoms and vertigo. Agree that patient's neurological exam showed mild flattening of the left nasolabial fold. Exam and 02/23 patient did elicit any neurological deficits or facial droop. She also endorsed to her what felt like a resolution of her symptoms completely on 02/22. She did have some positional change vertigo but otherwise felt much better. Chest x-ray showed no cardiopulmonary findings. Head/neck CTA was unremarkable. 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 Echocardiogram showed ejection fraction of 65-70% and grade 1 diastolic dysfunction but was otherwise normal. Blood work did not show any gross abnormalities, urinalysis was unremarkable. On physical exam, patient did not appear to have any neurological deficits, rashes, or cardiopulmonary findings. She also did not have any visual or auditory changes or deficits. Low suspicion of herpes zoster, Lyme disease, or middle ear infection. Lower extremity reflexes and pulses were unremarkable. The patient is ambulatory without difficulty on 02/23. Symptoms likely attributed to concurrent vertigo symptoms with possible underlying Keyes's palsy. Patient is otherwise hemodynamically stable can be discharged home at this time. Neurology recommended prednisone taper for the next 5 days. Pain for discharge home with close follow-up with Neurology and her PCP. Status at Discharge Functional status at discharge: independent ambulation Overall status at discharge: patient is back to baseline Time Spent with Patient Time attestation: Total time spent providing and/or coordinating discharge services: 35 Exam Narrative: GENERAL: Well-appearing, well-nourished, and in no acute distress. HEAD: Normocephalic, atraumatic. ENT:? Mucous membranes moist. CHEST: Clear to auscultation.? No respiratory distress. HEART: Regular rate and rhythm. ? Normal peripheral pulses. ABDOMEN: Soft, nontender, nondistended. EXTREMITIES: Normal range of motion. No peripheral edema. SKIN: Warm dry normal color NEURO: Alert and oriented x3. No facial droop, slight dizziness with position changes, no ataxia, horizontal nystagmus noted PSYCH: tearful at times DS: Data Data Completed and Pending Labs on day of discharge: Labs from last 24 hours 02/23/25 05:20 WBC 10.0 RBC 4.43 Hgb 13.8 Hct 43.0 MCV 97.1 MCH 31.2 MCHC 32.1 RDW 12.8 Plt Count 246 MPV 10.1 Immature Gran % (Auto) 0.4 Neut % (Auto) 63.7 Lymph % (Auto) 29.6 [place] % (Auto) 5.9 Eos % (Auto) 0.1 Baso % (Auto) 0.3 Lymph # (Auto) 2.97 [place] # (Auto) 0.6 Eos # (Auto) 0.0 Baso # (Auto) 0.0 Abs Immat Gran (auto) 0.04 H Absolute Neuts (auto) 6.4 Absolute Nucleated RBC 0.000 Nucleated RBC % 0.0 Sodium 139 Potassium 4.1 Chloride 108 H Carbon Dioxide 22 Anion Gap 9 BUN 18 H Creatinine 0.70 Estim Creat Clear Calc 85 Estimated GFR > 60 Glucose 104 Calcium 8.7 Magnesium 2.3 Total Bilirubin 0.6 AST 23 ALT 18 Alkaline Phosphatase 74 Total Protein 7.4 Albumin 4.1 Discharge Plan Discharge Attending physician on discharge: Alannah Lee Consulting providers: Paige Swan; Saul Clements Discharging Clinician: Saul Clements Anticipated Discharge Date/Time: 02/23/25 14:12 Patient Disposition: Home Activity: as tolerated Diet: as tolerated Discharge Instructions: Take all medications as prescribed even if feeling better. You will be getting a prescription for Prednisone to be taken over the next 5 days. Follow the instructions on the prescription. Eat well balanced meals and stay hydrated Follow-up with neurology in 6-8 weeks Change positions slowly taking a break in between each position change If you should experience any chest pain, shortness of breath, temps >100.4 or any other worrisome symptoms please follow up with your PCP come back to the hospital Follow up with your primary in 1 weeks It has been a pleasure taking care of you thank you for using our services Patient Instructions: Antibiotic Form Patient Language: Upper Sorbian Stand Alone Forms: General Discharge Information Follow-up/Referrals: Aydin,MD Joshua [Primary Care Provider] - Paige Swan MD [Physician] - Discharge Medications: New prednisone 10 mg tablet 10 mg PO DIRECTED Qty: 15 0RF Rx Instructions: see taper instructions Take 50 mg tomorrow (5 tablets), then 40 mg on 02/25 (4 tablets), 30mg on 02/26 (3 tablets), 20mg (2 tablets) on 02/27, and finally 10 mg (1 tablet) on 02/28 Continued alprazolam 0.5 mg tablet 0.5 mg PO QID PRN (Reason: anxiety) sertraline 50 mg tablet 50 mg PO Q24H Date of admission: 02/21/25 13:09 Primary Care Provider: Sandy*Joshua Admitting Provider: Tobin Oviedo Attending physician on admission: Tobin Oviedo Condition: Stable Quality VTE Prophylaxis VTE prophylaxis: pharmacologic ordered (Lovenox) Hospitalist MIPS Heart Failure (Exclusion) Patient has history of Heart Transplant or Left Ventricular Assistive Device?: No IF YES, STOP HERE Heart Failure (Qualifier) Patient has current or prior documentation of LVEF less than or equal to 40%, or mod/servere depressed LVSF?: No IF NO, STOP HERE
== END 2025-02-23 15:10 | disposition home or self-care (01) ==
LOC: ANHED 12:43 → ANH3MEDSUR 02-22 06:48
PROVIDERS: Nurse Practitioner; Admitting Provider General Practice; Emergency Provider Emergency Medicine; PCP Internal Medicine; Visit Provider Family Medicine
DX: R42 Dizziness and giddiness (principal); R29.810 Facial weakness; F41.9 Anxiety disorder, unspecified; M17.11 Unilateral primary osteoarthritis, right knee; Z79.899 Other long term (current) drug therapy
CPT/HCPCS: 36415; 70496; 70498; 70553; 71045; 80053; 80061; 82948; 83036; 83735; 84484; 85025; 85610; 85730; 93005; 93306; 96372; 96374; 96375; 99285; A9270; A9577; G0378; J1650; J7512; Q9967